=== PATIENT | female | born 1970 | race Caucasian/White ===

== ENCOUNTER 2016-04-01 11:20 | Inpatient (IN) | payer OTHER ==
[~2016-04-01] VITALS: Ht 162.6 cm; Wt 73.6 kg
--- NOTE | 2016-04-01 12:17 | DIAGNOSTIC IMAGING REPORT ---
PROCEDURE: XR CHEST 1 VIEW INDICATION: SHORTNESS OF BREATH TECHNIQUE: Portable AP view 11:43 a.m. COMPARISON: Chest 02/18/2016 FINDINGS: Lungs are clear. Heart and mediastinum are normal. Thorax is normal. IMPRESSION: 1. Negative chest.
--- NOTE | 2016-04-01 17:36 | ED NURSING NOTES ---
Clinical Report - Nurses [facility] [address] [place] [address] 04/01/2016 11:21 Patient: SUZETTE PLASENCIA TRIAGE Triage time 11:35. Acuity: LEVEL 2. Chief Complaint: SHORTNESS OF BREATH, DIFFICULTY BREATHING and WHEEZING. Alert. --11:42 Jojo Castle R.N. 11:33 04/01/16. BP: 152/96. HR: 110. RR: 24. O2 saturation: 94%. Pain level now: 12/28. Additional comments: headache is severe. --11:42 Jojo Castle R.N. Weight: 63.5 kg stated. Height/Length: 64 inches Per Patient. BMI: 24. --11:37 Jojo Castle R.N. Medications Wellbutrin Oral. --11:37 Jojo Castle R.N. Gabapentin Oral. --11:37 Jojo Castle R.N. Albuterol nebulizer treatments prn. --13:18 Jojo Castle R.N. BuPROPion HCl Oral 150 mg, daily. --13:18 Jojo Castle R.N. RisperiDONE Oral 2 mg, 2x a day. --13:18 Jojo Castle R.N. ProAir HFA Inhalation (Aerosol Solution 108 (90 Base) mcg/act) 90 mcg 2 puffs q4-6hrs. --13:19 Jojo Castle R.N. Amoxicillin Oral 875mg [id number] til gone. --13:21 Jojo Castle R.N. Allergies No Known Drug Allergy. --11:37 Jojo Castle R.N. History Arrived by EMS. Historian: EMS. Primary physician (Laure emerson). Onset. (4 days ago). 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 PAST MEDICAL HX: No history of chronic obstructive pulmonary disease. SOCIAL HX: Heavy tobacco smoker (cigarette)- 1 pack per day. No alcohol use or drug use. --11:42 Jojo Castle R.N. PROBLEMS: Fall. Sprain. Cervical Strain. Concussion. Head Injury. Acute Pain. Pyelonephritis. UTI - Urinary Tract Infection. Abdominal Pain. COPD - Chronic Obstructive Pulmonary Disease. Ovarian Cyst. Lifestyle / Substance Problems. Bronchospasm. Back Pain. Abscess. Contusion. Bronchitis. --11:40 Jojo Castle R.N. ADDITIONAL SURGERIES: Bone spur . Dilatation & Curettage. Tonsillectomy. --11:40 Jojo Castle R.N. Interventions ID band on patient. To room. --11:42 Jojo Castle R.N. PHYSICAL ASSESSMENT 11:45. RESPIRATORY: Severe respiratory distress. The patient can speak a few words at a time. Accessory muscle use. Wheezing present. --11:52 Jojo Castle R.N. GENERAL / NEURO / PSYCH: ( Pt being treated with neb tx). --11:53 Jojo Castle R.N. NURSING PROGRESS NOTES 11:31 04/01/2016 Prednisone PO 40 mg given. --11:46 Hannah Graham R.N. 11:48 04/01/2016 Site #1 started via IV in the right hand with an 20g angiocath, with aseptic technique and good blood return; one attempt. Blood drawn: cultures x2. Labeled in the presence of the patient. Saline lock flushed with 10 mL saline (Lactate collected). --11:48 Amy Carlson R.N. 11:53 04/01/16. cloth classer, pulse oximeter and NIBP monitor placed on patient; mail handler equipment operator- Lead II and V1; monitor alarms on. Head of bed elevated. Patient identifiers checked. Call light placed in reach. Bed placed in lowest position. Patient ready for evaluation- chart flagged. --11:53 Jojo Castle R.N. 11:54 04/01/16. Oxygen administered at 8 liters (simple mask). ( RT giving continuous 10 mg nebs, or 4 treatments of 2.5mg Albuterol). --11:55 Jojo Castle R.N. 12:08 04/01/2016 Albuterol Neb TX 2.5 mg given. Given by the respiratory therapist. (x 4 treatments, total of 10 mg). --12:18 Jojo Castle R.N. 13:10 04/01/16. BP: 113/68. HR: 104. RR: 28. O2 saturation: 99% on face mask at 8 liters/minute. Additional comments: oxymask. --13:10 Jojo Castle R.N. ( Pt given a turkey sandwich.). --13:11 Jojo Castle R.N. 14:33 04/01/2016 Toradol IVP 30 mg given over 2 minute(s) via site #1. Allergies verified and confirmed 5 rights. IV patency established. IV site checked: no pain, redness, or swelling. IV flushed thoroughly pre- and post-medication administration. --14:33 Amy Carlson R.N. 14:38 04/01/2016 Started 500 mg of Levofloxacin IVPB in bag #1 100 mL; at 100 mL/hr over 1 hour(s) via site #1 via IV pump. Allergies verified and confirmed 5 rights. IV patency established. IV site checked: no pain, redness, or swelling. IV flushed thoroughly pre- and post-medication administration. --14:38 Amy Carlson R.N. DISPOSITION / DISCHARGE 17:15 04/01/16. BP: 115/62. HR: 92. RR: 20. O2 saturation: 92%. End tidal CO2: 29 mmHg. 16:00 04/01/16. HR: 90. RR: 20. O2 saturation: 92%. 15:00 04/01/16. HR: 90. RR: 21. O2 saturation: 93%. Pain level now: 0/10. 13:10 04/01/16. BP: 113/68. HR: 104. RR: 28. O2 saturation: 99% on face mask at 8 liters/minute. Additional comments: oxymask. 11:33 04/01/16. BP: 152/96. HR: 110. RR: 24. O2 saturation: 94%. Pain level now: 10/10. Additional comments: headache is severe. --19:25 Jojo Castle R.N. Report was given to a nurse via a phone call. Report included patient's care, treatment, medications, reviewed medication reconcilliation, and condition (including any recent changes or anticipated changes). All questions were answered. Report was acknowledged and care was transferred. Bed obtained. --19:40 Jojo Castle R.N. 19:42 04/01/16. ( Pt. started screaming "I can't breathe!!!!" over and over, getting more and more anxious. ERMD at bedside, listened to her lungs, and ordered a Duoneb treatment, which nurses went ahead and started, as RT is not available at this time. Pt finally slowed down her breathing and will probably do this again during the night.). --19:42 Jojo Castle R.N. Locked/Released at 04/02/2016 8:17 by Jojo Castle R.N.
--- NOTE | 2016-04-01 17:36 | ED ORDER SUMMARY ---
..... Patient: SUZETTE PLASENCIA OrderSheet [facility] VisitID: [id number] [place] [address] 45y, F Registration Date/Time: 04/01/2016 ORDER SHEET Weight: 63.5 kg (stated) Allergies: No Known Drug Allergy GENERAL ORDERS: Chest 1V Urgent (11:35 04/01/2016 Ferny Starks) (Ack 11:38 TBergley) (11:58 LSullivan R.N.) Blood Culture (No) (N/A) Urgent (11:36 04/01/2016 Ferny Starks) (Ack 11:38 TBergley) (11:39 KWilliams R.N.) CBC w Diff Urgent (11:04/01/2016 Ferny Starks) (Ack 11:38 TBergley) (11:39 KWilliams R.N.) CMP Urgent (11:36 04/01/2016 Ferny Starks) (Ack 11:38 TBergley) (11:39 KWilliams R.N.) UA-Culture if indicated Urgent (11:36 04/01/2016 Ferny Starks) (Ack 11:38 TBergley) Urine Urgent (11:04/01/2016 Ferny Starks) (Ack 11:38 TBergley) D-Dimer Urgent (11:04/01/2016 Ferny Starks) (Ack 11:38 TBergley) (11:39 KWilliams R.N.) BNP Urgent (11:36 04/01/2016 Ferny Starks) (Ack 11:38 TBergley) (11:39 KWilliams R.N.) ABG (G) Urgent (11:36 04/01/2016 Ferny Starks) (Ack 11:38 TBergley) (11:39 KWilliams R.N.) Lactic Acid for Sepsis Protocol Urgent (11:04/01/2016 Ferny Starks) (Ack 11:38 TBergley) (11:46 KWilliams R.N.) PCT (Procalcitonin) Urgent (11:36 04/01/2016 Ferny Starks) (Ack 11:38 TBergley) (11:39 Tylor R.N.) ABG (G) Urgent (13:27 04/01/2016 Ferny Starks) (Ack 13:29 TBergley) (13:48 TBergley) MEDICATION ORDERS: Prednisone PO 40 mg (NOW) (11:36 04/01/2016 Ferny Starks) (11:46 Tylor Trinidad.Jesus Alberto.) Albuterol Neb Tx 10 mg continuous (NOW) (11:48 04/01/2016 Ferny Starks) (12:18 Omar R.N.) DuoNeb Neb Tx 1 unit dose (NOW) (19:36 04/01/2016 Ferny Starks) IV FLUIDS: IV Saline Lock (11:36 04/01/2016 Ferny Starks) (11:49 LWhalrosmery R.N.) Levofloxacin IV 500 mg/100mL (NOW) (14:00 04/01/2016 Ferny Starks) (14:38 LWhalrosmery R.N.) Toradol IV 30 mg (NOW) (14:15 04/01/2016 Ferny Starks) (14:33 LWhalrosmery R.N.) ORDER SHEET NOTES: [Electronically signed by Trent Nascimento Dr. (23:12 04/01/2016)] [Electronically signed by Jojo Castle R.N. (08:17 04/02/2016)] [Electronically locked/signed by Jojo Castle R.N. (08:17 04/02/2016)]
--- NOTE | 2016-04-01 17:36 | ED ORDER SUMMARY ---
..... Patient: SUZETTE PLASENCIA OrderSheet [facility] VisitID: [id number] [place] [address] 45y, F Registration Date/Time: 04/01/2016 ORDER SHEET Weight: 63.5 kg (stated) Allergies: No Known Drug Allergy GENERAL ORDERS: Chest 1V Urgent (11:35 04/01/2016 Ferny Starks) (Ack 11:38 TBergley) (11:58 LSullivan R.N.) Blood Culture (No) (N/A) Urgent (11:36 04/01/2016 Ferny Starks) (Ack 11:38 TBergley) (11:39 KWilliams R.N.) CBC w Diff Urgent (11:04/01/2016 Ferny Starks) (Ack 11:38 TBergley) (11:39 KWilliams R.N.) CMP Urgent (11:36 04/01/2016 Ferny Starks) (Ack 11:38 TBergley) (11:39 KWilliams R.N.) UA-Culture if indicated Urgent (11:36 04/01/2016 Ferny Starks) (Ack 11:38 TBergley) Urine Urgent (11:04/01/2016 Ferny Starks) (Ack 11:38 TBergley) D-Dimer Urgent (11:04/01/2016 Ferny Starks) (Ack 11:38 TBergley) (11:39 KWilliams R.N.) BNP Urgent (11:36 04/01/2016 Ferny Starks) (Ack 11:38 TBergley) (11:39 KWilliams R.N.) ABG (G) Urgent (11:36 04/01/2016 Ferny Starks) (Ack 11:38 TBergley) (11:39 KWilliams R.N.) Lactic Acid for Sepsis Protocol Urgent (11:04/01/2016 Ferny Starks) (Ack 11:38 TBergley) (11:46 KWilliams R.N.) PCT (Procalcitonin) Urgent (11:36 04/01/2016 Ferny Starks) (Ack 11:38 TBergley) (11:39 Tylor R.N.) ABG (G) Urgent (13:27 04/01/2016 Ferny Starks) (Ack 13:29 TBergley) (13:48 TBergley) MEDICATION ORDERS: Prednisone PO 40 mg (NOW) (11:36 04/01/2016 Ferny Starks) (11:46 Tylor Trinidad.Jesus Alberto.) Albuterol Neb Tx 10 mg continuous (NOW) (11:48 04/01/2016 Ferny Starks) (12:18 Omar R.N.) DuoNeb Neb Tx 1 unit dose (NOW) (19:36 04/01/2016 Ferny Starks) IV FLUIDS: IV Saline Lock (11:36 04/01/2016 Ferny Starks) (11:49 LWhalrosmery R.N.) Levofloxacin IV 500 mg/100mL (NOW) (14:00 04/01/2016 Ferny Starks) (14:38 LWhalrosmery R.N.) Toradol IV 30 mg (NOW) (14:15 04/01/2016 Ferny Starks) (14:33 LWhalrosmery R.N.) ORDER SHEET NOTES: [Electronically signed by Trent Nascimento Dr. (23:12 04/01/2016)] [Electronically signed by Jojo Castle R.N. (08:17 04/02/2016)] [Electronically locked/signed by Jojo Castle R.N. (08:17 04/02/2016)]
--- NOTE | 2016-04-01 17:36 | ED NURSING NOTES ---
Clinical Report - Nurses [facility] [address] [place] [address] 04/01/2016 11:21 Patient: SUZETTE PLASENCIA TRIAGE Triage time 11:35. Acuity: LEVEL 2. Chief Complaint: SHORTNESS OF BREATH, DIFFICULTY BREATHING and WHEEZING. Alert. --11:42 Jojo Castle R.N. 11:33 04/01/16. BP: 152/96. HR: 110. RR: 24. O2 saturation: 94%. Pain level now: 12/28. Additional comments: headache is severe. --11:42 Jojo Castle R.N. Weight: 63.5 kg stated. Height/Length: 64 inches Per Patient. BMI: 24. --11:37 Jojo Castle R.N. Medications Wellbutrin Oral. --11:37 Jojo Castle R.N. Gabapentin Oral. --11:37 Jojo Castle R.N. Albuterol nebulizer treatments prn. --13:18 Jojo Castle R.N. BuPROPion HCl Oral 150 mg, daily. --13:18 Jojo Castle R.N. RisperiDONE Oral 2 mg, 2x a day. --13:18 Jojo Castle R.N. ProAir HFA Inhalation (Aerosol Solution 108 (90 Base) mcg/act) 90 mcg 2 puffs q4-6hrs. --13:19 Jojo Castle R.N. Amoxicillin Oral 875mg n94ulgpi til gone. --13:21 Jojo Castle R.N. Allergies No Known Drug Allergy. --11:37 Jojo Castle R.N. History Arrived by EMS. Historian: EMS. Primary physician (Laure emerson). Onset. (4 days ago). 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 PAST MEDICAL HX: No history of chronic obstructive pulmonary disease. SOCIAL HX: Heavy tobacco smoker (cigarette)- 1 pack per day. No alcohol use or drug use. --11:42 Jojo Castle R.N. PROBLEMS: Fall. Sprain. Cervical Strain. Concussion. Head Injury. Acute Pain. Pyelonephritis. UTI - Urinary Tract Infection. Abdominal Pain. COPD - Chronic Obstructive Pulmonary Disease. Ovarian Cyst. Lifestyle / Substance Problems. Bronchospasm. Back Pain. Abscess. Contusion. Bronchitis. --11:40 Jojo Castle R.N. ADDITIONAL SURGERIES: Bone spur . Dilatation & Curettage. Tonsillectomy. --11:40 Jojo Castle R.N. Interventions ID band on patient. To room. --11:42 Jojo Castle R.N. PHYSICAL ASSESSMENT 11:45. RESPIRATORY: Severe respiratory distress. The patient can speak a few words at a time. Accessory muscle use. Wheezing present. --11:52 Jojo Castle R.N. GENERAL / NEURO / PSYCH: ( Pt being treated with neb tx). --11:53 Jojo Castle R.N. NURSING PROGRESS NOTES 11:31 04/01/2016 Prednisone PO 40 mg given. --11:46 Hannah Graham R.N. 11:48 04/01/2016 Site #1 started via IV in the right hand with an 20g angiocath, with aseptic technique and good blood return; one attempt. Blood drawn: cultures x2. Labeled in the presence of the patient. Saline lock flushed with 10 mL saline (Lactate collected). --11:48 Amy Carlson R.N. 11:53 04/01/16. vehicle monitor technician, pulse oximeter and NIBP monitor placed on patient; youth nutritional monitor- Lead II and V1; monitor alarms on. Head of bed elevated. Patient identifiers checked. Call light placed in reach. Bed placed in lowest position. Patient ready for evaluation- chart flagged. --11:53 Jojo Castle R.N. 11:54 04/01/16. Oxygen administered at 8 liters (simple mask). ( RT giving continuous 10 mg nebs, or 4 treatments of 2.5mg Albuterol). --11:55 Jojo Castle R.N. 12:08 04/01/2016 Albuterol Neb TX 2.5 mg given. Given by the respiratory therapist. (x 4 treatments, total of 10 mg). --12:18 Jojo Castle R.N. 13:10 04/01/16. BP: 113/68. HR: 104. RR: 28. O2 saturation: 99% on face mask at 8 liters/minute. Additional comments: oxymask. --13:10 Jojo Castle R.N. ( Pt given a turkey sandwich.). --13:11 Jojo Castle R.N. 14:33 04/01/2016 Toradol IVP 30 mg given over 2 minute(s) via site #1. Allergies verified and confirmed 5 rights. IV patency established. IV site checked: no pain, redness, or swelling. IV flushed thoroughly pre- and post-medication administration. --14:33 Amy Carlson R.N. 14:38 04/01/2016 Started 500 mg of Levofloxacin IVPB in bag #1 100 mL; at 100 mL/hr over 1 hour(s) via site #1 via IV pump. Allergies verified and confirmed 5 rights. IV patency established. IV site checked: no pain, redness, or swelling. IV flushed thoroughly pre- and post-medication administration. --14:38 Amy Carlson R.N. DISPOSITION / DISCHARGE 17:15 04/01/16. BP: 115/62. HR: 92. RR: 20. O2 saturation: 92%. End tidal CO2: 29 mmHg. 16:00 04/01/16. HR: 90. RR: 20. O2 saturation: 92%. 15:00 04/01/16. HR: 90. RR: 21. O2 saturation: 93%. Pain level now: 0/10. 13:10 04/01/16. BP: 113/68. HR: 104. RR: 28. O2 saturation: 99% on face mask at 8 liters/minute. Additional comments: oxymask. 11:33 04/01/16. BP: 152/96. HR: 110. RR: 24. O2 saturation: 94%. Pain level now: 10/10. Additional comments: headache is severe. --19:25 Jojo Castle R.N. Report was given to a nurse via a phone call. Report included patient's care, treatment, medications, reviewed medication reconcilliation, and condition (including any recent changes or anticipated changes). All questions were answered. Report was acknowledged and care was transferred. Bed obtained. --19:40 Jojo Castle R.N. 19:42 04/01/16. ( Pt. started screaming "I can't breathe!!!!" over and over, getting more and more anxious. ERMD at bedside, listened to her lungs, and ordered a Duoneb treatment, which nurses went ahead and started, as RT is not available at this time. Pt finally slowed down her breathing and will probably do this again during the night.). --19:42 Jojo Castle R.N. Locked/Released at 04/02/2016 8:17 by Jojo Castle R.N.
--- NOTE | 2016-04-01 17:36 | ED CLINICAL REPORT ---
Clinical Report - Physicians/Mid Levels [facility] [address] [place] [address] 04/01/2016 11:21 Patient: SUZETTE PLASENCIA Time Seen: 11:34; upon arrival, initial patient contact. Arrived- By ambulance. Historian- patient and EMS personnel. HISTORY OF PRESENT ILLNESS Chief Complaint: DYSPNEA and HISTORY OF CHRONIC OBSTRUCTIVE PULMONARY DISEASE. This started about 4 days ago and is still present and worsening. It was gradual in onset. The dyspnea is severe. The patient has had sputum production, a cough, wheezing, chills and anxiety. No fever, sweating episodes, dyspnea on exertion, chest pain or calf pain. No foot swelling, dizziness or palpitations. Similar symptoms previously: Several times. Recent medical care: Not recently seen/assessed. REVIEW OF SYSTEMS No sore throat, nasal discharge, sinus drainage, nausea or vomiting. All systems otherwise negative, except as recorded above. PAST HISTORY Fall. Sprain. Cervical Strain. Concussion. Head Injury. Acute Pain. Pyelonephritis. UTI - Urinary Tract Infection. Abdominal Pain. COPD - Chronic Obstructive Pulmonary Disease. Ovarian Cyst. Lifestyle / Substance Problems. Bronchospasm. Back Pain. Abscess. Contusion. Bronchitis. --11:40 Jojo Castle R.N. ADDITIONAL SURGERIES: Bone spur . Dilatation & Curettage. Tonsillectomy. Medications: Amoxicillin Oral 875mg [id number] til gone. ProAir HFA Inhalation (Aerosol Solution 108 (90 Base) mcg/act) 90 mcg 2 puffs q4-6hrs. RisperiDONE Oral 2 mg, 2x a day. BuPROPion HCl Oral 150 mg, daily. Albuterol nebulizer treatments prn. Gabapentin Oral. Wellbutrin Oral. Allergies: No Known Drug Allergy. SOCIAL HISTORY Current every day heavy tobacco smoker. No alcohol use or drug use. ADDITIONAL NOTES The nursing notes have been reviewed with agreement regarding the chief complaint, PMH and patient medications and allergies. PHYSICAL EXAM Vital Signs: 04/01/2016 11:33 BP: 152/96. HR: 110. RR: 24. O2 saturation: 94%. Pain level now: 12/28. Have been reviewed. Hypertensive. Tachycardic. Tachypneic. Temperature normal. Oxygen saturation low. Appearance: Alert. Patient in severe distress. Eyes: No pale conjunctivae or scleral icterus. ENT: Dry mucous membranes present. Neck: No jugular venous distention. CVS: Tachycardia. Heart sounds normal. Rhythm normal. Respiratory: Severe respiratory distress with accessory muscle use, retractions, anxiety, diaphoresis, tachypnea and hyperventilation. Unable to speak. Moderately prolonged expirations. Moderately decreased air movement diffusely over both lungs. Expiratory severe bilateral wheezes diffusely. Skin: Skin warm and dry. Normal skin color. No rash. Extremities: Extremities exhibit normal ROM. No calf tenderness. No lower extremity edema. Neuro: Oriented X 3. LABS, X-RAYS, AND EKG Chest X-ray: No acute disease. Moderate hyperinflation present on the right and left with flattening of the diaphragm and an increased AP diameter. Consistent with COPD. Normal lung markings present. No infiltrate. Views: AP. Technique: good. The X-rays were independently viewed by me and interpreted contemporaneously by me. Interpretation time: 1150. Laboratory Tests: CBC w Diff: (BUD: 04/01/2016 11:30) ( MsgRcvd 04/01/2016 12:14) Final results Test Result Flag Units (Reference) WHITE BLOOD COUNT 12.2 H K/uL (4.5-11.5) RED BLOOD COUNT 5.42 H M/uL (4.00-5.20) HEMOGLOBIN 15.7 gm/dL (12.0-16.0) HEMATOCRIT 49.7 H % (36.0-46.0) MEAN CELL VOLUME 92 fL (80-100) MEAN CORPUSCULAR HGB 29 pg (26-34) MEAN CORPUSCULAR HGB CONC 32 g/dL (31-37) RED CELL DISTRIBUTION WIDTH 13.5 % (11.6-14.8) PLATELET COUNT 329 K/uL (150-400) LYMPH % 31.6 % (25-40) MONO % 3.4 % (3-14) GRANULOCYTE % 65.0 (53-90) [id number]: (BUD: 04/01/2016 11:30) ( VagRcvd 04/01/2016 12:40) Final results Test Result Flag Units (Reference) D-DIMER QUANTITATIVE < 0.27 L ug/mLFEU (0.27-0.52) The primary value of this quantitative assay relates toits negative predictive value (i.e. exclusion) of pulmonaryembolism/deep vein thrombosis/DIC.Elevated levels of d-dimer may also occur with:, age, cancer, inflammation, liver disease,post-op, infection, hematoma, coronary disease, peripheralarteriopathy, bleeding disorders and thrombolytic treatment.Results should be correlated with other clinical andradiological data.Testing Methodology: Latex Immunoassay BNP: (BUD: 04/01/2016 11:30) ( MsgRcvd 04/01/2016 12:53) Final results Test Result Flag Units (Reference) B-TYPE NATRIURETIC PEPTIDE 5.9 pg/ml (5-100) [id number]: (BUD: 04/01/2016 11:30) ( MsgRcvd 04/01/2016 12:57) Final results Test Result Flag Units (Reference) PROCALCITONIN <0.5 ng/mL (0-0.5) PCT Concentration: Interpretation : Risk/option for action PCT <=0.5 ng/mL : Systemic : Low risk forinfection(sepsis): progression to severeis not likely. : systemic infection.Local bacterial : CAUTION-PCT levelsinfection is : below 0.5 ng/mL do notpossible. : exclude an infection,because localizedinfections (withoutsystemic signs) may beassociated with suchlow levels. If PCT ismeasured very earlyafter a bacterialchallenge (usually <6hours), these valuesmay still be low. Inthis case PCT shouldbe re-assessed 6-24hours later. PCT >0.5 and : Systemic infection: Moderate risk for<= 2 ng/mL : (sepsis) is : progression to severepossible, but : systemic infection.other conditions : The patient should beare known to : closely monitoredelevate PCT. : both clinically andby re-assessing PCTwithin 6-24 hours. PCT > 2 ng/mL : Systemic infection: High risk for(sepsis) is likely: progression to severeunless other : systemic infection.causes are known. : PCT >= 10 ng/mL : Important systemic: High likelihood ofinflammatory : severe sepsis orresponse, almost : septic shock.exclusively due to:severe bacterial :sepsis or septic :shock. : CMP: (BUD: 04/01/2016 11:30) ( MsgRcvd 04/01/2016 12:40) Final results Test Result Flag Units (Reference) GLUCOSE 118 H mg/dL (70-110) BUN 8 mg/dL (7-18) CREATININE 0.7 mg/dL (0.6-1.3) Estimated GFR >60 mL/min Estimated GFR- >60 mL/min Note: Persistent reduction over 3 months in eGFR<60 mL/min/1.73 m2 defines CKD. Patients with eGFR values>=60 mL/min/1.73 m2 may also have CKD if evidence ofpersistent proteinuria. Additional information may be foundat www.[email or web address].org. SODIUM 141 mmol/L (136-145) POTASSIUM 4.5 mmol/L (3.5-5.1) CHLORIDE 103 mmol/L (98-107) CARBON DIOXIDE 27 mmol/L (21-32) CALCIUM 8.6 mg/dL (8.5-10.1) TOTAL PROTEIN 7.3 g/dL (6.4-8.2) ALBUMIN 3.7 g/dL (3.3-5.0) BILIRUBIN, TOTAL 0.2 mg/dL (0.0-1.0) ALKALINE PHOSPHATASE 71 U/L (46-116) AST (SGOT) 20 U/L (15-37) ALT (SGPT) 46 U/L (12-78) LACTIC ACID SEPSIS PROTOCOL 1.1 mmol/L (0.4-2.0) ABG: (BUD: 04/01/2016 13:27) ( MsgRcvd 04/01/2016 13:46) Final results Test Result Flag Units (Reference) FIO2 0.21 L % (20-101) MODIFIED CORTEZ TEST POSITIVE? YES ARTERIAL BLOOD GAS SITE LR ARTERIAL BLOOD GAS pH 7.36 (7.35-7.45) ABG PCO2 45.2 H mmHg (35-45) ABG PO2 48.9 *L mmHg (80.0-100.0) ABG BASE EXCESS -0.4 H mmol/L (-6.0--6.0) ABG HCO3 25.2 mmol/L (20.0-26.0) ABG TCO2 26.6 mmol/L (24.0-30.0) ABG [id number] 0.0 L mmHg (7.0-14.0) *NOTE: Normal rangeis based on aFIO2 of 21% ABG SAT O2 83.8 L % (95.1-100.0) ABG TOTAL HEMOGLOBIN 14.9 g/dL (12.0-16.0) ABG O2 HEMOGLOBIN 82.5 *L % (95.0-100.0) ABG CARBOXYHEMOGLOBIN 1.4 % (0.5-1.5) ABG METHEMOGLOBIN 0.1 L % (0.4-1.5) ABG RHEMOGLOBIN 16.0 % ABG: (BUD: 04/01/2016 11:36) ( MsgRcvd 04/01/2016 11:42) Final results Test Result Flag Units (Reference) FIO2 55 % (20-101) ABG MODE OF DELIVERY NASAL CAN MODIFIED CORTEZ TEST POSITIVE? YES ARTERIAL BLOOD GAS pH 7.26 L (7.35-7.45) ABG PCO2 61.2 *H mmHg (35-45) ABG PO2 87.2 mmHg (80.0-100.0) ABG BASE EXCESS -0.7 H mmol/L (-6.0--6.0) ABG HCO3 27.2 H mmol/L (20.0-26.0) ABG TCO2 29.1 mmol/L (24.0-30.0) ABG [id number] 240.0 H mmHg (7.0-14.0) *NOTE: Normal rangeis based on aFIO2 of 21% ABG SAT O2 95.6 % (95.1-100.0) ABG TOTAL HEMOGLOBIN 15.9 g/dL (12.0-16.0) ABG O2 HEMOGLOBIN 94.1 L % (95.0-100.0) ABG CARBOXYHEMOGLOBIN 1.3 % (0.5-1.5) ABG METHEMOGLOBIN 0.3 L % (0.4-1.5) ABG RHEMOGLOBIN 4.3 % . PROGRESS AND PROCEDURES Course of Care: 17:36 04/01/16. Patient markedly improved w/ Tx, ABG markedly improved, but remains hypoxic. 19:40 04/01/16. Pt became acutely dyspneic and upon exam found to be tachypneic and retracting w/ wheezing. Duoneb ordered. Critical care performed (80 minutes). Time includes: direct patient care, patient reassessment, coordination of patient care, interpretation of data (laboratory data, pulse oximetry, arterial blood gases and chest xrays), review of patient's medical records, medical consultation, family consultation regarding treatment decisions and documentation of patient care. The patient required critical care due to the acute impairment of vital organ systems (respiratory) and a high probability of life threatening deterioration. Multiple emergent interventions were required to prevent life threatening deterioration. Discussed case with hospitalist, (call returned 17:14 Dr. Christianson, she will come to ED to evaluate the patient). Reviewed test results and need for additional work-up. Admission orders written. Disposition: Admitted to the Critical Care Unit. Condition: stable. CLINICAL IMPRESSION Acute exacerbation of COPD. Hypoxia. (Electronically signed by Trent Nascimento Dr. 04/01/2016 23:12)
--- NOTE | 2016-04-01 17:36 | ED CLINICAL REPORT ---
Clinical Report - Physicians/Mid Levels [facility] [address] [place] [address] 04/01/2016 11:21 Patient: SUZETTE PLASENCIA Time Seen: 11:34; upon arrival, initial patient contact. Arrived- By ambulance. Historian- patient and EMS personnel. HISTORY OF PRESENT ILLNESS Chief Complaint: DYSPNEA and HISTORY OF CHRONIC OBSTRUCTIVE PULMONARY DISEASE. This started about 4 days ago and is still present and worsening. It was gradual in onset. The dyspnea is severe. The patient has had sputum production, a cough, wheezing, chills and anxiety. No fever, sweating episodes, dyspnea on exertion, chest pain or calf pain. No foot swelling, dizziness or palpitations. Similar symptoms previously: Several times. Recent medical care: Not recently seen/assessed. REVIEW OF SYSTEMS No sore throat, nasal discharge, sinus drainage, nausea or vomiting. All systems otherwise negative, except as recorded above. PAST HISTORY Fall. Sprain. Cervical Strain. Concussion. Head Injury. Acute Pain. Pyelonephritis. UTI - Urinary Tract Infection. Abdominal Pain. COPD - Chronic Obstructive Pulmonary Disease. Ovarian Cyst. Lifestyle / Substance Problems. Bronchospasm. Back Pain. Abscess. Contusion. Bronchitis. --11:40 Jojo Castle R.N. ADDITIONAL SURGERIES: Bone spur . Dilatation & Curettage. Tonsillectomy. Medications: Amoxicillin Oral 875mg [id number] til gone. ProAir HFA Inhalation (Aerosol Solution 108 (90 Base) mcg/act) 90 mcg 2 puffs q4-6hrs. RisperiDONE Oral 2 mg, 2x a day. BuPROPion HCl Oral 150 mg, daily. Albuterol nebulizer treatments prn. Gabapentin Oral. Wellbutrin Oral. Allergies: No Known Drug Allergy. SOCIAL HISTORY Current every day heavy tobacco smoker. No alcohol use or drug use. ADDITIONAL NOTES The nursing notes have been reviewed with agreement regarding the chief complaint, PMH and patient medications and allergies. PHYSICAL EXAM Vital Signs: 04/01/2016 11:33 BP: 152/96. HR: 110. RR: 24. O2 saturation: 94%. Pain level now: 12/28. Have been reviewed. Hypertensive. Tachycardic. Tachypneic. Temperature normal. Oxygen saturation low. Appearance: Alert. Patient in severe distress. Eyes: No pale conjunctivae or scleral icterus. ENT: Dry mucous membranes present. Neck: No jugular venous distention. CVS: Tachycardia. Heart sounds normal. Rhythm normal. Respiratory: Severe respiratory distress with accessory muscle use, retractions, anxiety, diaphoresis, tachypnea and hyperventilation. Unable to speak. Moderately prolonged expirations. Moderately decreased air movement diffusely over both lungs. Expiratory severe bilateral wheezes diffusely. Skin: Skin warm and dry. Normal skin color. No rash. Extremities: Extremities exhibit normal ROM. No calf tenderness. No lower extremity edema. Neuro: Oriented X 3. LABS, X-RAYS, AND EKG Chest X-ray: No acute disease. Moderate hyperinflation present on the right and left with flattening of the diaphragm and an increased AP diameter. Consistent with COPD. Normal lung markings present. No infiltrate. Views: AP. Technique: good. The X-rays were independently viewed by me and interpreted contemporaneously by me. Interpretation time: 1150. Laboratory Tests: CBC w Diff: (BUD: 04/01/2016 11:30) ( MsgRcvd 04/01/2016 12:14) Final results Test Result Flag Units (Reference) WHITE BLOOD COUNT 12.2 H K/uL (4.5-11.5) RED BLOOD COUNT 5.42 H M/uL (4.00-5.20) HEMOGLOBIN 15.7 gm/dL (12.0-16.0) HEMATOCRIT 49.7 H % (36.0-46.0) MEAN CELL VOLUME 92 fL (80-100) MEAN CORPUSCULAR HGB 29 pg (26-34) MEAN CORPUSCULAR HGB CONC 32 g/dL (31-37) RED CELL DISTRIBUTION WIDTH 13.5 % (11.6-14.8) PLATELET COUNT 329 K/uL (150-400) LYMPH % 31.6 % (25-40) MONO % 3.4 % (3-14) GRANULOCYTE % 65.0 (53-90) [id number]: (BUD: 04/01/2016 11:30) ( AlgRcvd 04/01/2016 12:40) Final results Test Result Flag Units (Reference) D-DIMER QUANTITATIVE < 0.27 L ug/mLFEU (0.27-0.52) The primary value of this quantitative assay relates toits negative predictive value (i.e. exclusion) of pulmonaryembolism/deep vein thrombosis/DIC.Elevated levels of d-dimer may also occur with:, age, cancer, inflammation, liver disease,post-op, infection, hematoma, coronary disease, peripheralarteriopathy, bleeding disorders and thrombolytic treatment.Results should be correlated with other clinical andradiological data.Testing Methodology: Latex Immunoassay BNP: (BUD: 04/01/2016 11:30) ( MsgRcvd 04/01/2016 12:53) Final results Test Result Flag Units (Reference) B-TYPE NATRIURETIC PEPTIDE 5.9 pg/ml (5-100) [id number]: (BUD: 04/01/2016 11:30) ( MsgRcvd 04/01/2016 12:57) Final results Test Result Flag Units (Reference) PROCALCITONIN <0.5 ng/mL (0-0.5) PCT Concentration: Interpretation : Risk/option for action PCT <=0.5 ng/mL : Systemic : Low risk forinfection(sepsis): progression to severeis not likely. : systemic infection.Local bacterial : CAUTION-PCT levelsinfection is : below 0.5 ng/mL do notpossible. : exclude an infection,because localizedinfections (withoutsystemic signs) may beassociated with suchlow levels. If PCT ismeasured very earlyafter a bacterialchallenge (usually <6hours), these valuesmay still be low. Inthis case PCT shouldbe re-assessed 6-24hours later. PCT >0.5 and : Systemic infection: Moderate risk for<= 2 ng/mL : (sepsis) is : progression to severepossible, but : systemic infection.other conditions : The patient should beare known to : closely monitoredelevate PCT. : both clinically andby re-assessing PCTwithin 6-24 hours. PCT > 2 ng/mL : Systemic infection: High risk for(sepsis) is likely: progression to severeunless other : systemic infection.causes are known. : PCT >= 10 ng/mL : Important systemic: High likelihood ofinflammatory : severe sepsis orresponse, almost : septic shock.exclusively due to:severe bacterial :sepsis or septic :shock. : CMP: (BUD: 04/01/2016 11:30) ( MsgRcvd 04/01/2016 12:40) Final results Test Result Flag Units (Reference) GLUCOSE 118 H mg/dL (70-110) BUN 8 mg/dL (7-18) CREATININE 0.7 mg/dL (0.6-1.3) Estimated GFR >60 mL/min Estimated GFR- >60 mL/min Note: Persistent reduction over 3 months in eGFR<60 mL/min/1.73 m2 defines CKD. Patients with eGFR values>=60 mL/min/1.73 m2 may also have CKD if evidence ofpersistent proteinuria. Additional information may be foundat www.kidney.org. SODIUM 141 mmol/L (136-145) POTASSIUM 4.5 mmol/L (3.5-5.1) CHLORIDE 103 mmol/L (98-107) CARBON DIOXIDE 27 mmol/L (21-32) CALCIUM 8.6 mg/dL (8.5-10.1) TOTAL PROTEIN 7.3 g/dL (6.4-8.2) ALBUMIN 3.7 g/dL (3.3-5.0) BILIRUBIN, TOTAL 0.2 mg/dL (0.0-1.0) ALKALINE PHOSPHATASE 71 U/L (46-116) AST (SGOT) 20 U/L (15-37) ALT (SGPT) 46 U/L (12-78) LACTIC ACID SEPSIS PROTOCOL 1.1 mmol/L (0.4-2.0) ABG: (BUD: 04/01/2016 13:27) ( MsgRcvd 04/01/2016 13:46) Final results Test Result Flag Units (Reference) FIO2 0.21 L % (20-101) MODIFIED CORTEZ TEST POSITIVE? YES ARTERIAL BLOOD GAS SITE LR ARTERIAL BLOOD GAS pH 7.36 (7.35-7.45) ABG PCO2 45.2 H mmHg (35-45) ABG PO2 48.9 *L mmHg (80.0-100.0) ABG BASE EXCESS -0.4 H mmol/L (-6.0--6.0) ABG HCO3 25.2 mmol/L (20.0-26.0) ABG TCO2 26.6 mmol/L (24.0-30.0) ABG EqOeE2n 0.0 L mmHg (7.0-14.0) *NOTE: Normal rangeis based on aFIO2 of 21% ABG SAT O2 83.8 L % (95.1-100.0) ABG TOTAL HEMOGLOBIN 14.9 g/dL (12.0-16.0) ABG O2 HEMOGLOBIN 82.5 *L % (95.0-100.0) ABG CARBOXYHEMOGLOBIN 1.4 % (0.5-1.5) ABG METHEMOGLOBIN 0.1 L % (0.4-1.5) ABG RHEMOGLOBIN 16.0 % ABG: (BUD: 04/01/2016 11:36) ( MsgRcvd 04/01/2016 11:42) Final results Test Result Flag Units (Reference) FIO2 55 % (20-101) ABG MODE OF DELIVERY NASAL CAN MODIFIED CORTEZ TEST POSITIVE? YES ARTERIAL BLOOD GAS pH 7.26 L (7.35-7.45) ABG PCO2 61.2 *H mmHg (35-45) ABG PO2 87.2 mmHg (80.0-100.0) ABG BASE EXCESS -0.7 H mmol/L (-6.0--6.0) ABG HCO3 27.2 H mmol/L (20.0-26.0) ABG TCO2 29.1 mmol/L (24.0-30.0) ABG QbTpZ5q 240.0 H mmHg (7.0-14.0) *NOTE: Normal rangeis based on aFIO2 of 21% ABG SAT O2 95.6 % (95.1-100.0) ABG TOTAL HEMOGLOBIN 15.9 g/dL (12.0-16.0) ABG O2 HEMOGLOBIN 94.1 L % (95.0-100.0) ABG CARBOXYHEMOGLOBIN 1.3 % (0.5-1.5) ABG METHEMOGLOBIN 0.3 L % (0.4-1.5) ABG RHEMOGLOBIN 4.3 % . PROGRESS AND PROCEDURES Course of Care: 17:36 04/01/16. Patient markedly improved w/ Tx, ABG markedly improved, but remains hypoxic. 19:40 04/01/16. Pt became acutely dyspneic and upon exam found to be tachypneic and retracting w/ wheezing. Duoneb ordered. Critical care performed (80 minutes). Time includes: direct patient care, patient reassessment, coordination of patient care, interpretation of data (laboratory data, pulse oximetry, arterial blood gases and chest xrays), review of patient's medical records, medical consultation, family consultation regarding treatment decisions and documentation of patient care. The patient required critical care due to the acute impairment of vital organ systems (respiratory) and a high probability of life threatening deterioration. Multiple emergent interventions were required to prevent life threatening deterioration. Discussed case with hospitalist, (call returned 17:14 Dr. Christianson, she will come to ED to evaluate the patient). Reviewed test results and need for additional work-up. Admission orders written. Disposition: Admitted to the Critical Care Unit. Condition: stable. CLINICAL IMPRESSION Acute exacerbation of COPD. Hypoxia. (Electronically signed by Trent Nascimento Dr. 04/01/2016 23:12)
[2016-04-01 20:05] VITALS: BP 106/82
[2016-04-01] MEDS ORDERED: GABAPENTIN100 MG PO (20:22)
[2016-04-01] MEDS ORDERED: ALBUTEROL2.5 MG/3 M IN (20:22)
[2016-04-01] MEDS ORDERED: WELLBUTRIN SR150 MG PO (20:23)
[2016-04-01] MEDS ORDERED: PROAIR HFA IN (20:24)
[2016-04-01] MEDS ORDERED: RISPERIDONE1 MG PO (20:25)
[2016-04-01] MEDS ORDERED: AMOXICILLIN250 MG PO (20:25)
[2016-04-01 21:18] VITALS: BP 107/64
[2016-04-01 22:06] VITALS: BP 112/60
[2016-04-01 23:21] VITALS: BP 116/65
[2016-04-02] VITALS (14 sets, daily range): BP systolic 110–128; BP diastolic 53–83
--- NOTE | 2016-04-02 02:40 | HISTORY AND PHYSICAL ---
ADMITTED: 04/01/2016 CHIEF COMPLAINT: 1. Shortness of breath HISTORY OF PRESENT ILLNESS: Information source, the patient herself. Reliability good. This is a 45-year-old female patient with past medical history of chronic obstructive pulmonary disease, depression, chronic smoking use, presented to [facility] Emergency Department with a complaint of shortness of breath. As per the patient , she began to have shortness of breath a few days back associated with dry cough, which has gotten worse over time, and today morning she was unable to catch her breath, so she came to [facility] Emergency Department. On initial evaluation in the emergency department, she was found to have acute hypoxic hypercapnic respiratory failure with severe chronic obstructive pulmonary disease exacerbation. For that, she received IV hydration, IV antibiotic, prednisone, and multiple Duo-Neb treatments with some improvements for this reason she is admitted to hospital for further management. MEDICAL/SURGICAL HISTORY: Consistent with chronic obstructive pulmonary disease, depression, history of urinary tract infection, pyelonephritis, cervical strain, head injury. Past surgical history, consistent with bone surgery for bony spur and plantar fasciitis, tonsillectomy. HOME MEDICATIONS: 1. Bupropion XR 150 mg b.i.d. 2. Benztropine 1 mg twice a day. 3. Albuterol nebulization p.r.n. 4. ProAir inhaler p.r.n. 5. Gabapentin 300 mg 2 times a day. 6. Risperidone 3 mg at bedtime. ALLERGIES: 1. NO KNOWN HISTORY OF MEDICATION ALLERGIES. SOCIAL HISTORY: She lives in the community with her mother, Does not work, not on disability. Smokes 1-2 packs of cigarettes per day. Drinks alcohol occasionally. Denies any use of illicit drugs. FAMILY HISTORY: Father had a history of chronic smoking and lung cancer. REVIEW OF SYSTEMS: She denied any fever, chills, sweats. Complains of cough, weakness, and malaise. Eyes: She denies any vision change, conjunctival inflammation, eyelid inflammation. She denies any nasal discharge, nasal congestion, mouth pain, mouth swelling, throat pain, throat swelling. She complains of a dry cough, shortness of breath with exertion, wheezing, hemoptysis, pleuritic pain. She denies any chest pain, palpitations, orthopnea, paroxysmal nocturnal dyspnea, edema. She denies any nausea, vomiting, abdominal pain, diarrhea, constipation, melena. She denies any dysuria , frequency, incontinence, hematuria, or retention. She denies any back pain. Complains of lower abdominal spasms on coughing. She denies any rash, lesions, jaundice, bruising. She denies any weakness, numbness, incoordination, change in her speech, confusion. PHYSICAL EXAMINATION: VITAL SIGNS: Pulse 101, temperature 98.4, blood pressure 112/60, pulse oximetry saturation 93% on 2 liter nasal cannula. GENERAL: The patient is alert, awake, oriented x3, in mild distress. HEENT: Head atraumatic, normocephalic. Eyes: Pupils are equally reactive to light. Mucous membranes are moist. LUNGS: Bilateral air entry present. Respiratory and expiratory wheezes with decrease duration of expiration. NECK: Normal exam. Supple. No JVD. CARDIOVASCULAR: Regular rate and rhythm, normal S1 and S2. ABDOMEN: Normal bowel sounds. Soft, nontender. No guarding. EXTREMITIES: No edema. SKIN: No rashes. No breakdown. No significant lesions. NEUROLOGIC: No lateralizing signs. LAB/IMAGING: On arrival ABG was pH 7.2, pCO2 61.2, pO2 87, bicarbonate 27, O2 saturations 95%. Sodium 141, potassium 4.5, chloride 103, bicarbonate 27, BUN 8, creatinine 0.7. GFR more than 60, glucose 118, lactic acid 1.1, calcium 8.6. Total bilirubin 8.2, AST 20, ALT 46, alkaline phosphatase 71. BNP 5.9, total protein 7.3, albumin 3.7. Procalcitonin 11.5. D-dimer less than 0.27. WBC 12.2, hemoglobin 15.7, hematocrit 49.7, platelets 329. ABG: pH 7.36, pCO2 45, pO2 of 48, bicarbonate 25 , oxygen 83. Blood cultures pending. Chest x-ray: Negative. IMPRESSION/PLAN: 1. A 45-year-old female with past medical history of chronic obstructive pulmonary disease, admitted with severe chronic obstructive pulmonary disease exacerbation and acute hypoxic and hypercapnic respiratory failure. She will be admitted to intensive care unit. Start on IV Solu-Medrol 60 mg every 8 hourly. DuoNebs, albuterol, ipratropium nebulization every 3 hourly and p.r.n. every day. Continue with supplemental oxygen and give IV antibiotic levofloxacin, for now. Monitor electrolyte, magnesium. Check ABG in the morning. Consider BiPAP as needed if the patient becomes more short of breath. 2. Nicotine dependence. We will start on nicotine patch 21 mg every day. 3. For depression, continue with Wellbutrin. 4. Anxiety. Hold risperidone for now. 5. Gastrointestinal prophylaxis, proton pump inhibitor. 6. Deep venous thrombosis prophylaxis, Lovenox. 7. E/M coding admission inpatient, [facility].
--- NOTE | 2016-04-02 08:18 | ED MED RECONCILIATION SUMMARY ---
Patient: SUZETTE PLASENCIA Medication Reconciliation Report [facility] VisitID: [id number] [place] [address] 45y, F Registration Date/Time: 04/01/2016 Weight: 63.5 kg Height/Length: 64 in. BMI: 24.0 ALLERGIES: No Known Drug Allergy The patient's Home Medications are listed below: THE FOLLOWING MEDICATIONS NEED TO BE RECONCILED: Albuterol nebulizer treatments prn Amoxicillin Oral 875mg [id number] til gone BuPROPion HCl Oral 150 mg, daily Gabapentin Oral ProAir HFA Inhalation (108 (90 Base) mcg/act) 90 mcg 2 puffs q4-6hrs RisperiDONE Oral 2 mg, 2x a day Wellbutrin Oral The source(s) of the original Home Medication information: Not obtained. The following Medications were given to the patient in the Emergency Department: Prednisone [PO] PO 40 mg, administered: 04/01/2016 11:31:00 AM Albuterol [Neb Tx] Neb TX 2.5 mg, administered: 04/01/2016 12:08:00 PM Toradol [IVP] IVP 30 mg, administered: 04/01/2016 2:33:00 PM Levofloxacin [IVPB] IVPB bolus 0, then 500 mg 100 mL/hr, administered: 04/01/2016 2:38:00 PM The following Medications were prescribed to the patient: None.
--- NOTE | 2016-04-02 08:18 | ED MED RECONCILIATION SUMMARY ---
Patient: SUZETTE PLASENCIA Medication Reconciliation Report [facility] VisitID: [id number] [place] [address] 45y, F Registration Date/Time: 04/01/2016 Weight: 63.5 kg Height/Length: 64 in. BMI: 24.0 ALLERGIES: No Known Drug Allergy The patient's Home Medications are listed below: THE FOLLOWING MEDICATIONS NEED TO BE RECONCILED: Albuterol nebulizer treatments prn Amoxicillin Oral 875mg [id number] til gone BuPROPion HCl Oral 150 mg, daily Gabapentin Oral ProAir HFA Inhalation (108 (90 Base) mcg/act) 90 mcg 2 puffs q4-6hrs RisperiDONE Oral 2 mg, 2x a day Wellbutrin Oral The source(s) of the original Home Medication information: Not obtained. The following Medications were given to the patient in the Emergency Department: Prednisone [PO] PO 40 mg, administered: 04/01/2016 11:31:00 AM Albuterol [Neb Tx] Neb TX 2.5 mg, administered: 04/01/2016 12:08:00 PM Toradol [IVP] IVP 30 mg, administered: 04/01/2016 2:33:00 PM Levofloxacin [IVPB] IVPB bolus 0, then 500 mg 100 mL/hr, administered: 04/01/2016 2:38:00 PM The following Medications were prescribed to the patient: None.
--- NOTE | 2016-04-02 08:18 | ED MAR SUMMARY ---
..... Medication Administration Record [facility] [address] [place] [address] Patient: SUZETTE PLASENCIA Visit ID: [id number] 45y, F Weight: 63.5 kg Height/Length: 64 in BMI: 24 ALLERGIES: No Known Drug Allergy Given 11:31 04/01/2016 Hannah Graham R.N. Medication Administered: PREDNISONE [PO], Dose: 40 mg PO. Medication Ordered: Prednisone PO 40 mg (NOW). Given 12:08 04/01/2016 Jojo Castle R.N. Medication Administered: ALBUTEROL [NEB TX], Dose: 2.5 mg Neb TX. Medication Ordered: Albuterol Neb Tx 10 mg continuous (NOW). Given 14:33 04/01/2016 Amy Carlson R.N. Medication Administered: TORADOL [IVP], Dose: 30 mg IVP over 2 minute(s), Site: #1 right hand. Medication Ordered: Toradol IV 30 mg (NOW). Start 14:38 04/01/2016 Amy Carlson RAntonio Medication Administered: LEVOFLOXACIN [IVPB], Dose: 500 mg IVPB over 1 hour(s), Rate: 100 mL/hr, Dispensed: 100 mL bag, Site: #1 right hand. Medication Ordered: Levofloxacin IV 500 mg/100mL (NOW).
--- NOTE | 2016-04-02 08:18 | ED DISCHARGE INSTRUCTIONS ---
Patient: SUZETTE PLASENCIA General Instructions VisitID: [id number] [address] [place] [address] 45y, F Registration Date/Time: 04/01/2016 Acute exacerbation of COPD. Hypoxia. (Electronically signed by Trent Nascimento Dr. 04/01/2016 23:12)
--- NOTE | 2016-04-02 08:18 | ED DISCHARGE INSTRUCTIONS ---
Patient: SUZETTE PLASENCIA General Instructions [facility] VisitID: [id number] [address] [place] [address] 45y, F Registration Date/Time: 04/01/2016 Acute exacerbation of COPD. Hypoxia. (Electronically signed by Trent Nascimento Dr. 04/01/2016 23:12)
--- NOTE | 2016-04-02 08:18 | ED MAR SUMMARY ---
..... Medication Administration Record [facility] [address] [place] [address] Patient: SUZETTE PLASENCIA Visit ID: [id number] 45y, F Weight: 63.5 kg Height/Length: 64 in BMI: 24 ALLERGIES: No Known Drug Allergy Given 11:31 04/01/2016 Hannah Graham R.N. Medication Administered: PREDNISONE [PO], Dose: 40 mg PO. Medication Ordered: Prednisone PO 40 mg (NOW). Given 12:08 04/01/2016 Jojo Castle R.N. Medication Administered: ALBUTEROL [NEB TX], Dose: 2.5 mg Neb TX. Medication Ordered: Albuterol Neb Tx 10 mg continuous (NOW). Given 14:33 04/01/2016 Amy Carlson R.N. Medication Administered: TORADOL [IVP], Dose: 30 mg IVP over 2 minute(s), Site: #1 right hand. Medication Ordered: Toradol IV 30 mg (NOW). Start 14:38 04/01/2016 Amy Carlson RAntonio Medication Administered: LEVOFLOXACIN [IVPB], Dose: 500 mg IVPB over 1 hour(s), Rate: 100 mL/hr, Dispensed: 100 mL bag, Site: #1 right hand. Medication Ordered: Levofloxacin IV 500 mg/100mL (NOW).
[2016-04-03 06:59] VITALS: BP 113/70
[2016-04-03] MEDS ORDERED: TYLENOL325 MG PO (10:15)
[2016-04-03] MEDS ORDERED: LEVOFLOXACIN500 MG PO (10:18)
[2016-04-03] MEDS ORDERED: PREDNISONE10 MG PO (11:10)
== END 2016-04-03 10:45 | disposition left against medical advice (07) | DRG 140 ==
LOC: ED SRH 11:20 → TRANS SRH 17:39 → CC SRH 19:58
PROVIDERS: ADMIT Family Medicine
DX: J44.1 Chronic obstructive pulmonary disease with (acute) exacerbation (principal); J96.01 Acute respiratory failure with hypoxia; F17.210 Nicotine dependence, cigarettes, uncomplicated; F32.9 Major depressive disorder, single episode, unspecified; F41.9 Anxiety disorder, unspecified

== ENCOUNTER 2016-09-03 11:58 | Emergency (ER) | payer OTHER ==
[~2016-09-03 11:58] MED LIST: ALBUTEROL2.5 MG/3 M IN; AMOXICILLIN250 MG PO; GABAPENTIN100 MG PO; LEVOFLOXACIN500 MG PO; PREDNISONE10 MG PO; PROAIR HFA IN; RISPERIDONE1 MG PO; TYLENOL325 MG PO; WELLBUTRIN SR150 MG PO
--- NOTE | 2016-09-03 13:22 | ED CLINICAL REPORT ---
Clinical Report - Physicians/Mid Levels [facility] [address] [place] [address] 09/03/2016 12:00 Patient: SUZETTE PLASENCIA Time Seen: 13:05; initial patient contact, initial documentation, patient care assumed. Arrived- By private vehicle. Historian- patient. HISTORY OF PRESENT ILLNESS Chief Complaint: Injury to the right hand. The injury happened about 4 days ago. Occurred at home. The patient sustained a puncture wound from a needle. (got stabbed by needle with glue on it under nail). Patient is experiencing severe pain. Patient denies injury to the head or neck. No other injury. REVIEW OF SYSTEMS The patient has had swelling. No tingling, numbness, weakness, foreign body or skin laceration. All systems otherwise negative, except as recorded above. PAST HISTORY See nurses notes. PROBLEMS: Hypoxia. Fall. Sprain. Cervical Strain. Concussion. Head Injury. Acute Pain. U TI. Pyelonephritis. UTI - Urinary Tract Infection. Abdominal Pain. COPD - Chronic Obstructive Pulmonary Disease. Ovarian Cyst. Lifestyle / Substance Problems. Bronchospasm. Back Pain. Abscess. Tetanus Status. Contusion. Muscle Strain, Upper Extremity. Bronchitis. LNMP - Last Normal Menstrual Period. --12:31 Lizet Beard R.N. COPD - Chronic Obstructive Pulmonary Disease [RuleOut]. --12:31 Lizet Beard R.N. ADDITIONAL SURGERIES: Bone spur . Dilatation & Curettage. Tonsillectomy. --12:31 Lizet Beard R.N. The patient's dominant hand is the right. SOCIAL HISTORY Heavy tobacco smoker. Occasional alcohol use. No drug use. No recent travel. Is a local resident. FAMILY HISTORY No significant family medical history. ADDITIONAL NOTES The nursing notes have been reviewed with agreement regarding the chief complaint, HPI, ROS, PMH and patient medications and allergies. PHYSICAL EXAM Vital Signs: 09/03/2016 12:26 BP: 127/71. HR: 75. RR: 18. O2 saturation: 99%. Temp: 98.2 F. Pain level now: 8/10. Have been reviewed as normal and appear to be correct. Appearance: Alert. Oriented X3. No acute distress. Head: Head atraumatic. Eyes: Pupils equal, round and reactive to light. Eyes normal inspection. Respiratory: No respiratory distress. Skin: Skin warm and dry. Skin intact. Extremities: Hand injury present. Right thumb: mild tenderness and swelling; limited movement secondary to pain (diminished flexion). Neurovascular intact distally. (R thumb swollen and tender). No erythema, laceration, abrasion, ecchymosis or puncture wound. No foreign body or deformity. No localization, subungual hematoma or amputation present. No wrist injury. Hand and wrist exam otherwise negative. Extremities otherwise negative. Neuro, Vascular and Tendons: Vascular status intact. Sensation intact. Motor intact. Tendon function intact. Neuro: Oriented X 3. No motor deficit. No sensory deficit. Note: isolated injury to R thumb. PROGRESS AND PROCEDURES Patient counseled in person regarding the patient's stable condition and diagnosis. Differential Diagnosis: Other possible considerations: pw, fb, paronychia, abscess, cellulitis, contact dermatitis, mrsa. Above considerations are based on history and physical exam. Differential diagnosis was discussed with patient. Disposition: Discharged home in good and unchanged condition (13:22). Condition: good and stable. CLINICAL IMPRESSION Single superficial puncture wound to the right thumb; infection present. Delayed treatment. No puncture wound with foreign body present or right fingernail injury. Not penetrating into body cavity. INSTRUCTIONS Protect wound and keep wound area clean. Soak in warm soapy water twice daily. Apply neosporin twice daily. Warnings: GENERAL WARNINGS: Return or contact your physician immediately if your condition worsens or changes unexpectedly, if not improving as expected, or if other problems arise. Specifically return if problem worsens. Prescription Medications: Quimby 5 mg / 325 mg tablets: take 1 orally every 6 hours as needed for pain. Dispense ten (10). No refill. Motrin 800 mg tablets: take 1 tablet orally every 8 hours as needed for pain. Dispense thirty (30). No refills. Substitution is permissible. Bactrim DS 800 mg / 160 mg: take 1 tablet orally every 12 hours for 10 days. No refill. Follow-up: Follow up with your doctor in about two days even if well and for wound check. Call for an appointment. Summary of care provided to patient. Understanding of the discharge instructions verbalized by patient. (Electronically signed by Lindy Mendoza A.R.N.P. 09/03/2016 13:45)
--- NOTE | 2016-09-03 13:22 | ED NURSING NOTES ---
Clinical Report - Nurses [facility] [address] [place] [address] 09/03/2016 12:00 Patient: SUZETTE PLASENCIA TRIAGE Triage time 12:26. Acuity: LEVEL 3. Chief Complaint: INJURY TO RIGHT HAND. INJURY TO THE RIGHT THUMB, RIGHT INDEX FINGER and RIGHT MIDDLE FINGER. Alert. No acute distress. SEPSIS SCREEN: Sepsis Screen: negative. Negative (no infection suspected/documented). JOSE C COMA SCORE: Jose C Coma Scale: 15- eyes open spontaneously (4); best verbal response- oriented x 4 (5); best motor response- obeys commands (6). --12:34 Lizet Beard R.N. 12:26 09/03/16. BP: 127/71. HR: 75. RR: 18. O2 saturation: 99%. Temp: 98.2 F. Pain level now: 10/28. --12:34 Lizet Beard R.N. 12:26 09/03/16. BP: 127/71. HR: 75. RR: 18. O2 saturation: 99%. Temp: 98.2 F. Pain level now: 10/28. --12:34 Lizet Beard R.N. Weight: 67.5 kg stated. Height/Length: 64 inches Per Patient. BMI: 25.6. --12:33 Lizet Beard R.N. Medications Albuterol nebulizer treatments prn. BuPROPion HCl Oral 150 mg, 2x a day. Gabapentin Oral 300 mg, 2x a day. ProAir HFA Inhalation (Aerosol Solution 108 (90 Base) mcg/act) 90 mcg 2 puffs q4-6hrs. Wellbutrin Oral 150 mg, 2x a day. --12:30 Lizet Beard R.N. Medication/allergy information source: the patient. --12:34 Lizet Beard R.N. Allergies No Known Drug Allergy. --12:30 Lizet Beard R.N. History Arrived by private vehicle. Historian: patient. Accompanied by family. Primary physician (chc). This occurred (3 - 4 days, last night was the worse.). Mechanism of injury: (Metal needle got under thumb nail and had some strong glue. Feels burning, throbbing, pain.). 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 PAST MEDICAL HX: Tetanus status: up-to-date. Last normal menstrual period- very iregular. SOCIAL HX: Heavy tobacco smoker (cigarette)- less than 1 pack per day. Occasional alcohol use. No drug use. FALL RISK ASSESSMENT: Fall risk assessment completed. No fall risk identified. NUTRITIONAL RISK ASSESSMENT: The nutritional risk assessment revealed no deficiencies. FUNCTIONAL ASSESSMENT: Functional assessment: no impairments noted. LEARNING NEEDS ASSESSMENT: The learning needs assessment revealed no barriers. SKIN INTEGRITY ASSESSMENT: Skin integrity risk assessment completed. No skin integrity risk identified. --12:34 Lizet Beard R.N. PROBLEMS: Hypoxia. Fall. Sprain. Cervical Strain. Concussion. Head Injury. Acute Pain. U TI. Pyelonephritis. UTI - Urinary Tract Infection. Abdominal Pain. COPD - Chronic Obstructive Pulmonary Disease. Ovarian Cyst. Lifestyle / Substance Problems. Bronchospasm. Back Pain. Abscess. Tetanus Status. Contusion. Muscle Strain, Upper Extremity. Bronchitis. LNMP - Last Normal Menstrual Period. --12:31 Lizet Beard R.N. COPD - Chronic Obstructive Pulmonary Disease [RuleOut]. --12:31 Lizet Beard R.N. ADDITIONAL SURGERIES: Bone spur . Dilatation & Curettage. Tonsillectomy. --12:31 Lizet Beard R.N. Interventions ID band on patient. To room. --12:34 Lizet Beard R.N. PHYSICAL ASSESSMENT Ambulatory to room. GENERAL / NEURO / PSYCH: Oriented X 4. Alert. Appears in pain and anxious. She has had numbness. EXTREMITIES: Limited ROM present. Right hand: tenderness, swelling, erythema and suspected foreign body. SKIN: Skin intact. Skin is warm and dry. --12:35 Lizet Beard R.N. NURSING PROGRESS NOTES Extremity elevated. Call light placed in reach. Side rails up x 2. Bed placed in lowest position. Brakes of bed on. Patient ready for evaluation. --12:35 Lizet Beard R.N. DISPOSITION / DISCHARGE 13:25. Condition at departure: unchanged. No learning barriers present. Discharge instructions provided and reviewed with the patient. Reviewed medication(s) side effects, precautions, dosing and course information. Prescription(s) given to the patient. Patient verbalized understanding. Written instructions provided in [place]. The patient was discharged home. She left the Emergency Department ambulatory and via private vehicle. Patient driving. Medication list reviewed and validated. --13:32 Lizet Beard R.N. 12:26 09/03/16. BP: 127/71. HR: 75. RR: 18. O2 saturation: 99%. Temp: 98.2 F. Pain level now: 10/28. --13:32 Lizet Beard R.N. Locked/Released at 09/03/2016 13:33 by Lizet Beard R.N.
--- NOTE | 2016-09-03 13:22 | ED NURSING NOTES ---
Clinical Report - Nurses [facility] [address] [place] [address] 09/03/2016 12:00 Patient: SUZETTE PLASENCIA TRIAGE Triage time 12:26. Acuity: LEVEL 3. Chief Complaint: INJURY TO RIGHT HAND. INJURY TO THE RIGHT THUMB, RIGHT INDEX FINGER and RIGHT MIDDLE FINGER. Alert. No acute distress. SEPSIS SCREEN: Sepsis Screen: negative. Negative (no infection suspected/documented). JOSE C COMA SCORE: Jose C Coma Scale: 15- eyes open spontaneously (4); best verbal response- oriented x 4 (5); best motor response- obeys commands (6). --12:34 Lizet Beard R.N. 12:26 09/03/16. BP: 127/71. HR: 75. RR: 18. O2 saturation: 99%. Temp: 98.2 F. Pain level now: 10/28. --12:34 Lizet Beard R.N. 12:26 09/03/16. BP: 127/71. HR: 75. RR: 18. O2 saturation: 99%. Temp: 98.2 F. Pain level now: 10/28. --12:34 Lizet Beard R.N. Weight: 67.5 kg stated. Height/Length: 64 inches Per Patient. BMI: 25.6. --12:33 Lizet Beard R.N. Medications Albuterol nebulizer treatments prn. BuPROPion HCl Oral 150 mg, 2x a day. Gabapentin Oral 300 mg, 2x a day. ProAir HFA Inhalation (Aerosol Solution 108 (90 Base) mcg/act) 90 mcg 2 puffs q4-6hrs. Wellbutrin Oral 150 mg, 2x a day. --12:30 Lizet Beard R.N. Medication/allergy information source: the patient. --12:34 Lizet Beard R.N. Allergies No Known Drug Allergy. --12:30 Lizet Beard R.N. History Arrived by private vehicle. Historian: patient. Accompanied by family. Primary physician (chc). This occurred (3 - 4 days, last night was the worse.). Mechanism of injury: (Metal needle got under thumb nail and had some strong glue. Feels burning, throbbing, pain.). 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 PAST MEDICAL HX: Tetanus status: up-to-date. Last normal menstrual period- very iregular. SOCIAL HX: Heavy tobacco smoker (cigarette)- less than 1 pack per day. Occasional alcohol use. No drug use. FALL RISK ASSESSMENT: Fall risk assessment completed. No fall risk identified. NUTRITIONAL RISK ASSESSMENT: The nutritional risk assessment revealed no deficiencies. FUNCTIONAL ASSESSMENT: Functional assessment: no impairments noted. LEARNING NEEDS ASSESSMENT: The learning needs assessment revealed no barriers. SKIN INTEGRITY ASSESSMENT: Skin integrity risk assessment completed. No skin integrity risk identified. --12:34 Lizet Beard R.N. PROBLEMS: Hypoxia. Fall. Sprain. Cervical Strain. Concussion. Head Injury. Acute Pain. U TI. Pyelonephritis. UTI - Urinary Tract Infection. Abdominal Pain. COPD - Chronic Obstructive Pulmonary Disease. Ovarian Cyst. Lifestyle / Substance Problems. Bronchospasm. Back Pain. Abscess. Tetanus Status. Contusion. Muscle Strain, Upper Extremity. Bronchitis. LNMP - Last Normal Menstrual Period. --12:31 Lizet Beard R.N. COPD - Chronic Obstructive Pulmonary Disease [RuleOut]. --12:31 Lizet Beard R.N. ADDITIONAL SURGERIES: Bone spur . Dilatation & Curettage. Tonsillectomy. --12:31 Lizet Beard R.N. Interventions ID band on patient. To room. --12:34 Lizet Beard R.N. PHYSICAL ASSESSMENT Ambulatory to room. GENERAL / NEURO / PSYCH: Oriented X 4. Alert. Appears in pain and anxious. She has had numbness. EXTREMITIES: Limited ROM present. Right hand: tenderness, swelling, erythema and suspected foreign body. SKIN: Skin intact. Skin is warm and dry. --12:35 Lizet Beard R.N. NURSING PROGRESS NOTES Extremity elevated. Call light placed in reach. Side rails up x 2. Bed placed in lowest position. Brakes of bed on. Patient ready for evaluation. --12:35 Lizet Beard R.N. DISPOSITION / DISCHARGE 13:25. Condition at departure: unchanged. No learning barriers present. Discharge instructions provided and reviewed with the patient. Reviewed medication(s) side effects, precautions, dosing and course information. Prescription(s) given to the patient. Patient verbalized understanding. Written instructions provided in Spanish. The patient was discharged home. She left the Emergency Department ambulatory and via private vehicle. Patient driving. Medication list reviewed and validated. --13:32 Lizet Beard R.N. 12:26 09/03/16. BP: 127/71. HR: 75. RR: 18. O2 saturation: 99%. Temp: 98.2 F. Pain level now: 10/28. --13:32 Lizet Beard R.N. Locked/Released at 09/03/2016 13:33 by Lizet Beard R.N.
--- NOTE | 2016-09-03 13:45 | ED MED RECONCILIATION SUMMARY ---
Patient: SUZETTE PLASENCIA Medication Reconciliation Report [facility] VisitID: [id number] [address] [address] 45y, F Registration Date/Time: 09/03/2016 Weight: 67.5 kg Height/Length: 64 in. BMI: 25.6 ALLERGIES: No Known Drug Allergy The patient's Home Medications are listed below: THE FOLLOWING MEDICATIONS NEED TO BE RECONCILED: Albuterol nebulizer treatments prn BuPROPion HCl Oral 150 mg, 2x a day Gabapentin Oral 300 mg, 2x a day ProAir HFA Inhalation (108 (90 Base) mcg/act) 90 mcg 2 puffs q4-6hrs Wellbutrin Oral 150 mg, 2x a day The source(s) of the original Home Medication information: patient The following Medications were given to the patient in the Emergency Department: None. The following Medications were prescribed to the patient: [place] 5 mg / 325 mg tablets: take 1 orally every 6 hours as needed for pain. Dispense ten (10). No refill. -- Lindy Mendoza A.R.N.P. Motrin 800 mg tablets: take 1 tablet orally every 8 hours as needed for pain. Dispense thirty (30). No refills. Substitution is permissible. -- Lindy Mendoza A.R.N.P. Bactrim DS 800 mg / 160 mg: take 1 tablet orally every 12 hours for 10 days. No refill. -- Lindy Mendoza A.R.N.P.
--- NOTE | 2016-09-03 13:45 | ED DISCHARGE INSTRUCTIONS ---
Patient: SUZETTE PLASENCIA General Instructions [facility] VisitID: [id number] [place] [address] 45y, F Registration Date/Time: 09/03/2016 Single superficial puncture wound to the right thumb; infection present. Delayed treatment. No puncture wound with foreign body present or right fingernail injury. Not penetrating into body cavity. INSTRUCTIONS Protect wound and keep wound area clean. Soak in warm soapy water twice daily. Apply neosporin twice daily. Warnings: GENERAL WARNINGS: Return or contact your physician immediately if your condition worsens or changes unexpectedly, if not improving as expected, or if other problems arise. Specifically return if problem worsens. Prescription Medications: Twining 5 mg / 325 mg tablets: take 1 orally every 6 hours as needed for pain. Dispense ten (10). No refill. Motrin 800 mg tablets: take 1 tablet orally every 8 hours as needed for pain. Dispense thirty (30). No refills. Substitution is permissible. Bactrim DS 800 mg / 160 mg: take 1 tablet orally every 12 hours for 10 days. No refill. Follow-up: Follow up with your doctor in about two days even if well and for wound check. Call for an appointment. Summary of care provided to patient. Understanding of the discharge instructions verbalized by patient. ADDITIONAL INFORMATION Puncture Wound (General) A puncture wound is a hole through the skin. Bacteria, dirt and debris can be drawn into this wound, increasing the risk of infection. However, antibiotics are usually not prescribed for this injury unless signs of infection are already present. Therefore, it is important to observe the wound closely for the signs of infection listed below. Home Care: If your wound is on an arm, hand, leg, or foot, keep that part raised during the first 48 hours to reduce swelling and pain. Keep the wound clean and dry. If a bandage was applied and it becomes wet or dirty, replace it. Otherwise, leave it in place for the next 24 hours. You may use acetaminophen (Tylenol) or ibuprofen (Motrin, Advil) to control pain, unless another medicine was prescribed. [NOTE: If you have chronic liver or kidney disease or ever had a stomach ulcer or GI bleeding, talk with your doctor before using these medicines.] You may shower as usual. However, do not soak the area in water (no baths or swimming) during the first 48 hours. Follow Up: Most puncture wounds heal within 10 days. However, an infection may sometimes occur despite proper treatment. If small particles were drawn into the puncture wound (such as fragments of cloth, rubber, wood or dirt), an infection may occur. These fragments are very hard to find during the first exam since it is not possible to get a good look inside a puncture wound and they do not show on an X-ray. Antibiotics and a minor surgical procedure to find and remove the foreign object will be needed if this happens. Therefore, check the wound daily for the warning signs listed below. Get Prompt Medical Attention if any of the following occur: SIGNS OF INFECTION: Increasing pain in the wound Redness, swelling, pus or red lines coming from the wound Fever of 100.4F (38C) or higher, or as directed by your healthcare provider Hydrocodone Bitartrate, Acetaminophen Oral tablet What is this medicine? ACETAMINOPHEN; HYDROCODONE (a set a NORMA carolyn fen; rod droe KOE done) is a pain reliever. It is used to treat mild to moderate pain. How should I use this medicine? Take this medicine by mouth. Swallow it with a full glass of water. Follow the directions on the prescription label. If the medicine upsets your stomach, take the medicine with food or milk. Do not take more than you are told to take. Talk to your vocational services specialist regarding the use of this medicine in children. This medicine is not approved for use in children. What side effects may I notice from receiving this medicine? Side effects that you should report to your doctor or health career and technology education teacher as soon as possible: allergic reactions like skin rash, itching or hives, swelling of the face, lips, or tongue breathing problems confusion feeling faint or lightheaded, falls stomach pain yellowing of the eyes or skin Side effects that usually do not require medical attention (report to your doctor or health career and technology education teacher if they continue or are bothersome): nausea, vomiting stomach upset What may interact with this medicine? alcohol antihistamines isoniazid medicines for depression, anxiety, or psychotic disturbances medicines for sleep muscle relaxants naltrexone narcotic medicines (opiates) for pain phenobarbital ritonavir tramadol What if I miss a dose? If you miss a dose, take it as soon as you can. If it is almost time for your next dose, take only that dose. Do not take double or extra doses. Where should I keep my medicine? Keep out of the reach of children. This medicine can be abused. Keep your medicine in a safe place to protect it from theft. Do not share this medicine with anyone. Selling or giving away this medicine is dangerous and against the law. Store at room temperature between 15 and 30 degrees C (59 and 86 degrees F). Protect from light. Keep container tightly closed. Throw away any unused medicine after the expiration date. Discard unused medicine and used packaging carefully. Pets and children can be harmed if they find used or lost packages. What should I tell my health care provider before I take this medicine? They need to know if you have any of these conditions: brain tumor Crohn's disease, inflammatory bowel disease, or ulcerative colitis drink more than 3 alcohol-containing drinks per day drug abuse or addiction head injury heart or circulation problems kidney disease or problems going to the bathroom liver disease lung disease, asthma, or breathing problems an unusual or allergic reaction to acetaminophen, hydrocodone, other opioid analgesics, other medicines, foods, dyes, or preservatives or trying to get breast-feeding What should I watch for while using this medicine? Tell your doctor or health career and technology education teacher if your pain does not go away, if it gets worse, or if you have new or a different type of pain. You may develop tolerance to the medicine. Tolerance means that you will need a higher dose of the medicine for pain relief. Tolerance is normal and is expected if you take the medicine for a long time. Do not suddenly stop taking your medicine because you may develop a severe reaction. Your body becomes used to the medicine. This does NOT mean you are addicted. Addiction is a behavior related to getting and using a drug for a non-medical reason. If you have pain, you have a medical reason to take pain medicine. Your doctor will tell you how much medicine to take. If your doctor wants you to stop the medicine, the dose will be slowly lowered over time to avoid any side effects. You may get drowsy or dizzy when you first start taking the medicine or change doses. Do not drive, use machinery, or do anything that may be dangerous until you know how the medicine affects you. Stand or sit up slowly. There are different types of narcotic medicines (opiates) for pain. If you take more than one type at the same time, you may have more side effects. Give your health care provider a list of all medicines you use. Your doctor will tell you how much medicine to take. Do not take more medicine than directed. Call emergency for help if you have problems breathing. The medicine will cause constipation. Try to have a bowel movement at least every 2 to 3 days. If you do not have a bowel movement for 3 days, call your doctor or health career and technology education teacher. Too much acetaminophen can be very dangerous. Do not take Tylenol (acetaminophen) or medicines that contain acetaminophen with this medicine. Many non-prescription medicines contain acetaminophen. Always read the labels carefully. Ibuprofen Oral tablet What is this medicine? IBUPROFEN (eye BYOO proe fen) is a non-steroidal anti-inflammatory drug (NSAID). It is used for dental pain, fever, headaches or migraines, osteoarthritis, rheumatoid arthritis, or painful monthly periods. It can also relieve minor aches and pains caused by a cold, flu, or sore throat. How should I use this medicine? Take this medicine by mouth with a glass of water. Follow the directions on the prescription label. Take this medicine with food if your stomach gets upset. Try to not lie down for at least 10 minutes after you take the medicine. Take your medicine at regular intervals. Do not take your medicine more often than directed. A special MedGuide will be given to you by the pharmacist with each prescription and refill. Be sure to read this information carefully each time. Talk to your vocational services specialist regarding the use of this medicine in children. Special care may be needed. What side effects may I notice from receiving this medicine? Side effects that you should report to your doctor or health career and technology education teacher as soon as possible: allergic reactions like skin rash, itching or hives, swelling of the face, lips, or tongue black or bloody stools, blood in the urine or in vomit breathing problems changes in vision chest pain general ill feeling or flu-like symptoms nausea or vomiting redness, blistering, peeling or loosening of the skin, including inside the mouth slurred speech or weakness on one side of the body stomach pain unexplained weight gain or swelling unusually weak or tired yellowing of eyes or skin Side effects that usually do not require medical attention (report to your doctor or health career and technology education teacher if they continue or are bothersome): constipation or diarrhea dizziness gas or heartburn stomach upset What may interact with this medicine? Do not take this medicine with any of the following medications: cidofovir ketorolac methotrexate pemetrexed This medicine may also interact with the following medications: alcohol aspirin diuretics lithium other drugs for inflammation like prednisone warfarin What if I miss a dose? If you miss a dose, take it as soon as you can. If it is almost time for your next dose, take only that dose. Do not take double or extra doses. Where should I keep my medicine? Keep out of the reach of children. Store at room temperature between 15 and 30 degrees C (59 and 86 degrees F). Keep container tightly closed. Throw away any unused medicine after the expiration date. What should I tell my health care provider before I take this medicine? They need to know if you have any of these conditions: asthma cigarette smoker drink more than 3 alcohol containing drinks a day heart disease or circulation problems such as heart failure or leg edema (fluid retention) high blood pressure kidney disease liver disease stomach bleeding or ulcers an unusual or allergic reaction to ibuprofen, aspirin, other NSAIDS, other medicines, foods, dyes, or preservatives or trying to get breast-feeding What should I watch for while using this medicine? Tell your doctor or healthcare professional if your symptoms do not start to get better or if they get worse. This medicine does not prevent heart attack or stroke. In fact, this medicine may increase the chance of a heart attack or stroke. The chance may increase with longer use of this medicine and in people who have heart disease. If you take aspirin to prevent heart attack or stroke, talk with your doctor or health career and technology education teacher. Do not take other medicines that contain aspirin, ibuprofen, or naproxen with this medicine. Side effects such as stomach upset, nausea, or ulcers may be more likely to occur. Many medicines available without a prescription should not be taken with this medicine. This medicine can cause ulcers and bleeding in the stomach and intestines at any time during treatment. Ulcers and bleeding can happen without warning symptoms and can cause . To reduce your risk, do not smoke cigarettes or drink alcohol while you are taking this medicine. You may get drowsy or dizzy. Do not drive, use machinery, or do anything that needs mental alertness until you know how this medicine affects you. Do not stand or sit up quickly, especially if you are an older patient. This reduces the risk of dizzy or fainting spells. This medicine can cause you to bleed more easily. Try to avoid damage to your teeth and gums when you brush or floss your teeth. Sulfamethoxazole, Trimethoprim Oral tablet What is this medicine? SULFAMETHOXAZOLE; TRIMETHOPRIM or SMX-TMP (suhl fuh meth OK shane zohl; trye METH oh prim) is a combination of a sulfonamide antibiotic and a second antibiotic, trimethoprim. It is used to treat or prevent certain kinds of bacterial infections. It will not work for colds, flu, or other viral infections. How should I use this medicine? Take this medicine by mouth with a full glass of water. Follow the directions on the prescription label. Take your medicine at regular intervals. Do not take it more often than directed. Do not skip doses or stop your medicine early. Talk to your vocational services specialist regarding the use of this medicine in children. Special care may be needed. This medicine has been used in children as young as 2 months of age. What side effects may I notice from receiving this medicine? Side effects that you should report to your doctor or health career and technology education teacher as soon as possible: allergic reactions like skin rash or hives, swelling of the face, lips, or tongue breathing problems fever or chills, sore throat irregular heartbeat, chest pain joint or muscle pain pain or difficulty passing urine red pinpoint spots on skin redness, blistering, peeling or loosening of the skin, including inside the mouth unusual bleeding or bruising unusually weak or tired yellowing of the eyes or skin Side effects that usually do not require medical attention (report to your doctor or health career and technology education teacher if they continue or are bothersome): diarrhea dizziness headache loss of appetite nausea, vomiting nervousness What may interact with this medicine? Do not take this medicine with any of the following medications: aminobenzoate potassium dofetilide metronidazole This medicine may also interact with the following medications: CHYNA inhibitors like benazepril, enalapril, lisinopril, and ramipril cyclosporine digoxin diuretics indomethacin medicines for diabetes methenamine methotrexate phenytoin potassium supplements pyrimethamine sulfinpyrazone tricyclic antidepressants warfarin What if I miss a dose? If you miss a dose, take it as soon as you can. If it is almost time for your next dose, take only that dose. Do not take double or extra doses. Where should I keep my medicine? Keep out of the reach of children. Store at room temperature between 20 to 25 degrees C (68 to 77 degrees F). Protect from light. Throw away any unused medicine after the expiration date. What should I tell my health care provider before I take this medicine? They need to know if you have any of these conditions: anemia asthma being treated with anticonvulsants if you frequently drink alcohol containing drinks kidney disease liver disease low level of folic acid or [id number] dehydrogenase poor nutrition or malabsorption porphyria severe allergies thyroid disorder an unusual or allergic reaction to sulfamethoxazole, trimethoprim, sulfa drugs, other medicines, foods, dyes, or preservatives or trying to get breast-feeding What should I watch for while using this medicine? Tell your doctor or health career and technology education teacher if your symptoms do not improve. Drink several glasses of water a day to reduce the risk of kidney problems. Do not treat diarrhea with over the counter products. Contact your doctor if you have diarrhea that lasts more than 2 days or if it is severe and watery. This medicine can make you more sensitive to the sun. Keep out of the sun. If you cannot avoid being in the sun, wear protective clothing and use a sunscreen. Do not use sun lamps or tanning beds/booths. You have been given the following additional information: Puncture Wound, General Hydrocodone Bitartrate, Acetaminophen Oral tablet Ibuprofen Oral tablet Sulfamethoxazole, Trimethoprim Oral tablet (Electronically signed by Lindy Mendoza A.R.N.P. 09/03/2016 13:45)
--- NOTE | 2016-09-03 13:45 | ED MED RECONCILIATION SUMMARY ---
Patient: SUZETTE PLASENCIA Medication Reconciliation Report [facility] VisitID: [id number] [place] [address] 45y, F Registration Date/Time: 09/03/2016 Weight: 67.5 kg Height/Length: 64 in. BMI: 25.6 ALLERGIES: No Known Drug Allergy The patient's Home Medications are listed below: THE FOLLOWING MEDICATIONS NEED TO BE RECONCILED: Albuterol nebulizer treatments prn BuPROPion HCl Oral 150 mg, 2x a day Gabapentin Oral 300 mg, 2x a day ProAir HFA Inhalation (108 (90 Base) mcg/act) 90 mcg 2 puffs q4-6hrs Wellbutrin Oral 150 mg, 2x a day The source(s) of the original Home Medication information: patient The following Medications were given to the patient in the Emergency Department: None. The following Medications were prescribed to the patient: [place] 5 mg / 325 mg tablets: take 1 orally every 6 hours as needed for pain. Dispense ten (10). No refill. -- Lindy Mendoza A.R.N.P. Motrin 800 mg tablets: take 1 tablet orally every 8 hours as needed for pain. Dispense thirty (30). No refills. Substitution is permissible. -- Lindy Mendoza A.R.N.P. Bactrim DS 800 mg / 160 mg: take 1 tablet orally every 12 hours for 10 days. No refill. -- Lindy Mendoza A.R.N.P.
--- NOTE | 2016-09-03 13:45 | ED MAR SUMMARY ---
..... Medication Administration Record [facility] [address] [place], [place] [id number] Patient: SUZETTE PLASENCIA Visit ID: [id number] 45y, F Weight: 67.5 kg Height/Length: 64 in BMI: 25.6 ALLERGIES: No Known Drug Allergy
--- NOTE | 2016-09-03 13:45 | ED MAR SUMMARY ---
..... Medication Administration Record [facility] [address] [place], [place] [id number] Patient: SUZETTE PLASENCIA Visit ID: [id number] 45y, F Weight: 67.5 kg Height/Length: 64 in BMI: 25.6 ALLERGIES: No Known Drug Allergy
== END 2016-09-03 13:25 | disposition home or self-care (01) ==
LOC: ED SRH 11:58
DX: S61.031A Puncture wound without foreign body of right thumb without damage to nail, initial encounter (principal); L08.9 Local infection of the skin and subcutaneous tissue, unspecified; W45.8XXA Other foreign body or object entering through skin, initial encounter; Y93.9 Activity, unspecified; Y99.9 Unspecified external cause status; Y92.009 Unspecified place in unspecified non-institutional (private) residence as the place of occurrence of the external cause; Z72.0 Tobacco use; Z79.51 Long term (current) use of inhaled steroids; Z79.899 Other long term (current) drug therapy

== ENCOUNTER 2016-09-06 20:01 | Emergency (ER) | payer OTHER ==
--- NOTE | 2016-09-06 20:46 | ED NURSING NOTES ---
Clinical Report - Nurses [facility] [address] [place] [address] 09/06/2016 20:01 Patient: SUZETTE PLASENCIA TRIAGE Triage time 20:Sep 06 2016. Acuity: LEVEL 3. Chief Complaint: RIGHT UPPER EXTREMITY PAIN, SWELLING, REDNESS and NUMBNESS. Alert. No acute distress. ROHIT COMA SCORE: [place] Coma Scale: 15- eyes open spontaneously (4); best verbal response- oriented x 4 (5); best motor response- obeys commands (6). --20:27 Yue Henderson R.N. 20:21 09/06/16. BP: 114/95. HR: 91. RR: 16. O2 saturation: 100%. Temp: 98.6 F. Pain level now: 09/27. --20:27 Yue Henderson R.N. Weight: 67.1 kg stated. Height/Length: 64 inches Per Patient. BMI: 25.4. --20:26 Yue Henderson R.N. Medications Albuterol nebulizer treatments prn. BuPROPion HCl Oral 150 mg, 2x a day. Gabapentin Oral 300 mg, 2x a day. ProAir HFA Inhalation (Aerosol Solution 108 (90 Base) mcg/act) 90 mcg 2 puffs q4-6hrs. Wellbutrin Oral 150 mg, 2x a day. --20:23 Yue Henderson R.N. Bactrim. --20:23 Yue Henderson R.N. [place]. --20:23 Yue Henderson R.N. Ibuprofen Oral. --20:23 Yue Henderson R.N. Allergies None. --20:24 Yue Henderson R.N. History Arrived by private vehicle. Historian: patient. This occurred (since Tuesday). It is described as radiating to the right upper extremity and hand. She has had swelling and redness. 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 PAST MEDICAL HX: Tetanus status: up-to-date. Immunizations: up-to-date. Last normal menstrual period- about 2 months ago. Denies current . SOCIAL HX: Current every day heavy tobacco smoker (cigarette)- 1 pack per day. Occasional alcohol use. No drug use. No infectious disease exposure. SELF HARM ASSESSMENT: A self harm assessment was performed. The patient answered "no" to the question "Do you have thoughts of harming or killing yourself?" and "Have you recently had thoughts about harming or killing others?". FALL RISK ASSESSMENT: Fall risk assessment completed. No fall risk identified. NUTRITIONAL RISK ASSESSMENT: The nutritional risk assessment revealed no deficiencies. FUNCTIONAL ASSESSMENT: Functional assessment: no impairments noted. LEARNING NEEDS ASSESSMENT: The learning needs assessment revealed no barriers. ABUSE ASSESSMENT: Abuse assessment: The patient was asked "Do you feel safe in your home?". SKIN INTEGRITY ASSESSMENT: Skin integrity risk assessment completed. No skin integrity risk identified. --20:27 Yue Henderson R.N. PROBLEMS: Hypoxia. Fall. Sprain. Cervical Strain. Concussion. Head Injury. Acute Pain. U TI. Pyelonephritis. UTI - Urinary Tract Infection. Abdominal Pain. COPD - Chronic Obstructive Pulmonary Disease. Ovarian Cyst. Lifestyle / Substance Problems. Bronchospasm. Back Pain. Abscess. Tetanus Status. Contusion. Muscle Strain, Upper Extremity. Bronchitis. Immunizations. LNMP - Last Normal Menstrual Period. --20:25 Yue Henderson R.N. COPD - Chronic Obstructive Pulmonary Disease [RuleOut]. --20:25 Yue Henderson R.N. ADDITIONAL SURGERIES: Bone spur . Dilatation & Curettage. Tonsillectomy. --20:25 Yue Henderson R.N. Interventions ID band on patient. To room. --20:27 Yue Henderson R.N. PHYSICAL ASSESSMENT Ambulatory to room. GENERAL / NEURO / PSYCH: Oriented X 4. Alert. Appears in pain. She has had numbness. EXTREMITIES: Increased warmth on the extremities. Right hand: tenderness, swelling, erythema and single puncture wound (thumb). SKIN: Skin is warm and dry. --20:28 Yue Henderson R.N. NURSING PROGRESS NOTES Patient identifiers checked. Call light placed in reach. Bed placed in lowest position. Brakes of bed on. --20:28 Yue Henderson R.N. DISPOSITION / DISCHARGE The patient left the Emergency Department without completion of treatment. The patient appears to be alert and oriented x4. She left the Emergency Department ambulatory and via private vehicle. --20:48 Sherrie Russo R.N. Locked/Released at 09/06/2016 20:50 by Sherrie Russo R.N.
--- NOTE | 2016-09-06 20:46 | ED NURSING NOTES ---
Clinical Report - Nurses [facility] [address] [place] [address] 09/06/2016 20:01 Patient: SUZETTE PLASENCIA TRIAGE Triage time 20:Sep 06 2016. Acuity: LEVEL 3. Chief Complaint: RIGHT UPPER EXTREMITY PAIN, SWELLING, REDNESS and NUMBNESS. Alert. No acute distress. ROHIT COMA SCORE: [place] Coma Scale: 15- eyes open spontaneously (4); best verbal response- oriented x 4 (5); best motor response- obeys commands (6). --20:27 Yue Henderson R.N. 20:21 09/06/16. BP: 114/95. HR: 91. RR: 16. O2 saturation: 100%. Temp: 98.6 F. Pain level now: 09/27. --20:27 Yue Henderson R.N. Weight: 67.1 kg stated. Height/Length: 64 inches Per Patient. BMI: 25.4. --20:26 Yue Henderson R.N. Medications Albuterol nebulizer treatments prn. BuPROPion HCl Oral 150 mg, 2x a day. Gabapentin Oral 300 mg, 2x a day. ProAir HFA Inhalation (Aerosol Solution 108 (90 Base) mcg/act) 90 mcg 2 puffs q4-6hrs. Wellbutrin Oral 150 mg, 2x a day. --20:23 Yue Henderson R.N. Bactrim. --20:23 Yue Henderson R.N. [place]. --20:23 Yue Henderson R.N. Ibuprofen Oral. --20:23 Yue Henderson R.N. Allergies None. --20:24 Yue Henderson R.N. History Arrived by private vehicle. Historian: patient. This occurred (since Tuesday). It is described as radiating to the right upper extremity and hand. She has had swelling and redness. 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 PAST MEDICAL HX: Tetanus status: up-to-date. Immunizations: up-to-date. Last normal menstrual period- about 2 months ago. Denies current . SOCIAL HX: Current every day heavy tobacco smoker (cigarette)- 1 pack per day. Occasional alcohol use. No drug use. No infectious disease exposure. SELF HARM ASSESSMENT: A self harm assessment was performed. The patient answered "no" to the question "Do you have thoughts of harming or killing yourself?" and "Have you recently had thoughts about harming or killing others?". FALL RISK ASSESSMENT: Fall risk assessment completed. No fall risk identified. NUTRITIONAL RISK ASSESSMENT: The nutritional risk assessment revealed no deficiencies. FUNCTIONAL ASSESSMENT: Functional assessment: no impairments noted. LEARNING NEEDS ASSESSMENT: The learning needs assessment revealed no barriers. ABUSE ASSESSMENT: Abuse assessment: The patient was asked "Do you feel safe in your home?". SKIN INTEGRITY ASSESSMENT: Skin integrity risk assessment completed. No skin integrity risk identified. --20:27 Yue Henderson R.N. PROBLEMS: Hypoxia. Fall. Sprain. Cervical Strain. Concussion. Head Injury. Acute Pain. U TI. Pyelonephritis. UTI - Urinary Tract Infection. Abdominal Pain. COPD - Chronic Obstructive Pulmonary Disease. Ovarian Cyst. Lifestyle / Substance Problems. Bronchospasm. Back Pain. Abscess. Tetanus Status. Contusion. Muscle Strain, Upper Extremity. Bronchitis. Immunizations. LNMP - Last Normal Menstrual Period. --20:25 Yue Henderson R.N. COPD - Chronic Obstructive Pulmonary Disease [RuleOut]. --20:25 Yue Henderson R.N. ADDITIONAL SURGERIES: Bone spur . Dilatation & Curettage. Tonsillectomy. --20:25 Yue Henderson R.N. Interventions ID band on patient. To room. --20:27 Yue Henderson R.N. PHYSICAL ASSESSMENT Ambulatory to room. GENERAL / NEURO / PSYCH: Oriented X 4. Alert. Appears in pain. She has had numbness. EXTREMITIES: Increased warmth on the extremities. Right hand: tenderness, swelling, erythema and single puncture wound (thumb). SKIN: Skin is warm and dry. --20:28 Yue Henderson R.N. NURSING PROGRESS NOTES Patient identifiers checked. Call light placed in reach. Bed placed in lowest position. Brakes of bed on. --20:28 Yue Henderson R.N. DISPOSITION / DISCHARGE The patient left the Emergency Department without completion of treatment. The patient appears to be alert and oriented x4. She left the Emergency Department ambulatory and via private vehicle. --20:48 Sherrie Russo R.N. Locked/Released at 09/06/2016 20:50 by Sherrie Russo R.N.
--- NOTE | 2016-09-06 20:50 | ED MAR SUMMARY ---
..... Medication Administration Record [facility] [address] [place], [place] [id number] Patient: SUZETTE PLASENCIA Visit ID: [id number] 45y, F Weight: 67.1 kg Height/Length: 64 in BMI: 25.4 ALLERGIES: None
--- NOTE | 2016-09-06 20:50 | ED MAR SUMMARY ---
..... Medication Administration Record [facility] [address] [place], [place] [id number] Patient: SUZETTE PLASENCIA Visit ID: [id number] 45y, F Weight: 67.1 kg Height/Length: 64 in BMI: 25.4 ALLERGIES: None
--- NOTE | 2016-09-06 20:50 | ED MED RECONCILIATION SUMMARY ---
Patient: SUZETTE PLASENCIA Medication Reconciliation Report [facility] VisitID: [id number] [address] [place] [address] 45y, F Registration Date/Time: 09/06/2016 Weight: 67.1 kg Height/Length: 64 in. BMI: 25.4 ALLERGIES: None The patient's Home Medications are listed below: THE FOLLOWING MEDICATIONS NEED TO BE RECONCILED: Albuterol nebulizer treatments prn Bactrim BuPROPion HCl Oral 150 mg, 2x a day Gabapentin Oral 300 mg, 2x a day Ibuprofen Oral [place] ProAir HFA Inhalation (108 (90 Base) mcg/act) 90 mcg 2 puffs q4-6hrs Wellbutrin Oral 150 mg, 2x a day The source(s) of the original Home Medication information: Not obtained. The following Medications were given to the patient in the Emergency Department: None. The following Medications were prescribed to the patient: None.
--- NOTE | 2016-09-06 20:50 | ED MED RECONCILIATION SUMMARY ---
Patient: SUZETTE PLASENCIA Medication Reconciliation Report [facility] VisitID: [id number] [address] [place] [address] 45y, F Registration Date/Time: 09/06/2016 Weight: 67.1 kg Height/Length: 64 in. BMI: 25.4 ALLERGIES: None The patient's Home Medications are listed below: THE FOLLOWING MEDICATIONS NEED TO BE RECONCILED: Albuterol nebulizer treatments prn Bactrim BuPROPion HCl Oral 150 mg, 2x a day Gabapentin Oral 300 mg, 2x a day Ibuprofen Oral [place] ProAir HFA Inhalation (108 (90 Base) mcg/act) 90 mcg 2 puffs q4-6hrs Wellbutrin Oral 150 mg, 2x a day The source(s) of the original Home Medication information: Not obtained. The following Medications were given to the patient in the Emergency Department: None. The following Medications were prescribed to the patient: None.
--- NOTE | 2016-09-06 21:50 | ED CLINICAL REPORT ---
Clinical Report - Physicians/Mid Levels [facility] [address] [place] [address] 09/06/2016 20:01 Patient: SUZETTE PLASENCIA Time Seen: 2016. Arrived- By private vehicle. Historian- patient. HISTORY OF PRESENT ILLNESS Chief Complaint: SKIN RASH. Is still present. (patient reports possible incident to her r. thumb from a sharp object about 4-5 days previously, was seen at the urgent care as well as here and started on antibiotics, reports appears seizures to her second and third digit have improved, however the swelling has not. Patient has been taking Bactrim. He denies any injury. He denies any fevers or chills. Denies any rash extending into her arm. Denies any difficulty with movement. Denies any spontaneous drainage from the thumb. Denies any new trauma.). REVIEW OF SYSTEMS No fever, chills, nausea or difficulty with urination. All systems otherwise negative, except as recorded above. PAST HISTORY Problems: Puncture Wound. Hypoxia. Fall. Sprain. Cervical Strain. Concussion. Head Injury. Acute Pain. U TI. Pyelonephritis. UTI - Urinary Tract Infection. Abdominal Pain. COPD - Chronic Obstructive Pulmonary Disease. Ovarian Cyst. Lifestyle / Substance Problems. Bronchospasm. Back Pain. Abscess. Tetanus Status. Contusion. Muscle Strain, Upper Extremity. Bronchitis. Immunizations. LNMP - Last Normal Menstrual Period. Additional Surgeries: Bone spur . Dilatation & Curettage. Tonsillectomy. Medications: Ibuprofen Oral. [place]. Bactrim. Albuterol nebulizer treatments prn. BuPROPion HCl Oral 150 mg, 2x a day. Gabapentin Oral 300 mg, 2x a day. ProAir HFA Inhalation (Aerosol Solution 108 (90 Base) mcg/act) 90 mcg 2 puffs q4-6hrs. Wellbutrin Oral 150 mg, 2x a day. Allergies: None. ADDITIONAL NOTES The nursing notes have been reviewed. PHYSICAL EXAM Vital Signs: 09/06/2016 20:21 BP: 114/95. HR: 91. RR: 16. O2 saturation: 100%. Temp: 98.6 F. Pain level now: 7/10. Appearance: Alert. CVS: Normal heart rate and rhythm. Heart sounds normal. Respiratory: No respiratory distress. Breath sounds normal. Skin: Skin warm. Cellulitis (Her right palmar surface of the thumb. with swelling subungal region, and tuft. no drainage, no puncture wound). PROGRESS AND PROCEDURES Course of Care: I discussed with the patient the need for a few labs, x-ray, and likely small incision and drainage, after anesthetic to her right thumb and digital block. Patient does not wish for any of this. I encouraged the patient to stay to obtain an x-ray, and labs. She does not wish for such either. I am concerned she has a small abscess, just subungually they needs to be drained. Patient reports she is adamant that she does not want any drainage and she does not have an abscess. Patient reports she'll follow-up with her primary care doctor on Tuesday. She eloped. Patient is stable. Patient/family counseled. CLINICAL IMPRESSION R. Thumb Cellulitis vs Abscess. (Electronically signed by Ira Dean P.A.-C 09/06/2016 21:50)
--- NOTE | 2016-09-06 21:50 | ED CLINICAL REPORT ---
Clinical Report - Physicians/Mid Levels [facility] [address] [place] [address] 09/06/2016 20:01 Patient: SUZETTE PLASENCIA Time Seen: 2016. Arrived- By private vehicle. Historian- patient. HISTORY OF PRESENT ILLNESS Chief Complaint: SKIN RASH. Is still present. (patient reports possible incident to her r. thumb from a sharp object about 4-5 days previously, was seen at the urgent care as well as here and started on antibiotics, reports appears seizures to her second and third digit have improved, however the swelling has not. Patient has been taking Bactrim. He denies any injury. He denies any fevers or chills. Denies any rash extending into her arm. Denies any difficulty with movement. Denies any spontaneous drainage from the thumb. Denies any new trauma.). REVIEW OF SYSTEMS No fever, chills, nausea or difficulty with urination. All systems otherwise negative, except as recorded above. PAST HISTORY Problems: Puncture Wound. Hypoxia. Fall. Sprain. Cervical Strain. Concussion. Head Injury. Acute Pain. U TI. Pyelonephritis. UTI - Urinary Tract Infection. Abdominal Pain. COPD - Chronic Obstructive Pulmonary Disease. Ovarian Cyst. Lifestyle / Substance Problems. Bronchospasm. Back Pain. Abscess. Tetanus Status. Contusion. Muscle Strain, Upper Extremity. Bronchitis. Immunizations. LNMP - Last Normal Menstrual Period. Additional Surgeries: Bone spur . Dilatation & Curettage. Tonsillectomy. Medications: Ibuprofen Oral. [place]. Bactrim. Albuterol nebulizer treatments prn. BuPROPion HCl Oral 150 mg, 2x a day. Gabapentin Oral 300 mg, 2x a day. ProAir HFA Inhalation (Aerosol Solution 108 (90 Base) mcg/act) 90 mcg 2 puffs q4-6hrs. Wellbutrin Oral 150 mg, 2x a day. Allergies: None. ADDITIONAL NOTES The nursing notes have been reviewed. PHYSICAL EXAM Vital Signs: 09/06/2016 20:21 BP: 114/95. HR: 91. RR: 16. O2 saturation: 100%. Temp: 98.6 F. Pain level now: 7/10. Appearance: Alert. CVS: Normal heart rate and rhythm. Heart sounds normal. Respiratory: No respiratory distress. Breath sounds normal. Skin: Skin warm. Cellulitis (Her right palmar surface of the thumb. with swelling subungal region, and tuft. no drainage, no puncture wound). PROGRESS AND PROCEDURES Course of Care: I discussed with the patient the need for a few labs, x-ray, and likely small incision and drainage, after anesthetic to her right thumb and digital block. Patient does not wish for any of this. I encouraged the patient to stay to obtain an x-ray, and labs. She does not wish for such either. I am concerned she has a small abscess, just subungually they needs to be drained. Patient reports she is adamant that she does not want any drainage and she does not have an abscess. Patient reports she'll follow-up with her primary care doctor on Tuesday. She eloped. Patient is stable. Patient/family counseled. CLINICAL IMPRESSION R. Thumb Cellulitis vs Abscess. (Electronically signed by Ira Dean P.A.-C 09/06/2016 21:50)
--- NOTE | 2016-09-06 21:50 | ED DISCHARGE INSTRUCTIONS ---
Patient: SUZETTE PLASENCIA General Instructions [facility] VisitID: [id number] [address] [place] [address] 45y, F Registration Date/Time: 09/06/2016 R. Thumb Cellulitis vs Abscess. (Electronically signed by Ira Dean P.A.-C 09/06/2016 21:50)
--- NOTE | 2016-09-06 21:50 | ED DISCHARGE INSTRUCTIONS ---
Patient: SUZETTE PLASENCIA General Instructions [facility] VisitID: [id number] [address] [place] [address] 45y, F Registration Date/Time: 09/06/2016 R. Thumb Cellulitis vs Abscess. (Electronically signed by Ira Dean P.A.-C 09/06/2016 21:50)
== END 2016-09-06 20:45 | disposition left against medical advice (07) ==
LOC: ED SRH 20:01
DX: L03.011 Cellulitis of right finger (principal); J44.9 Chronic obstructive pulmonary disease, unspecified; Z79.51 Long term (current) use of inhaled steroids; Z79.891 Long term (current) use of opiate analgesic; Z79.2 Long term (current) use of antibiotics; Z79.1 Long term (current) use of non-steroidal anti-inflammatories (NSAID)